=== PATIENT | male | born 1935 | race Caucasian/White ===

== ENCOUNTER 2017-04-10 14:09 | Observation (INO) | payer MEDICARE ==
[2017-04-10] VITALS (9 sets, daily range): BP systolic 150–196; BP diastolic 60–82; PULSE 75–114; RESP 16–28; O2SAT 97–99
[~2017-04-10] VITALS: Ht 182.9 cm; Wt 78.0 kg
[~2017-04-10 14:09] MED LIST: ALBU8.5H2 INHALATION; AZIT250T4 PO; CHLORPHENIRAMINE; CLOP75TA28 PO; CLOP75TA3 PO; CYAN500 PO; IPRA3AMP IH; OMEP20CA11 PO; PANT40SU PO; PENT400T PO; PRD5T PO; WARF1TAB6 PO; WARF2TAB7 PO
--- NOTE | 2017-04-10 14:47 | ED.REPORT ---
HPI-General Illness Date of Service Apr 10, 2017 ED Provider: History of Present Illness: sob with movement ongoing for a week. last tranfusion was 5 weeks ago. 7.8 was 2 weeks ago. Primary care is [facility]. 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 On coumadin for stents in legs. Nursing Notes Stated Complaint: ANEMIA Chief Complaint: General Complaint Nursing Notes Reviewed: Yes Allergies: Coded Allergies: Wasp (Verified Allergy, Severe, Anaphylaxis, 04/10/17) Uncoded Allergies: BEES - ANAPHYLAXIS (Allergy, Severe, anaphylaxis, 10/29/13) Scheduled Albuterol HFA (Proair HFA) 8.5 Gm Hfa.aer.ad 2 PUFFS INHALATION Q4H Clopidogrel Bisulfate (Plavix) 75 Mg Tablet 75 MG PO DAILY Cyanocobalamin (Vitamin B12) 500 Mcg Tablet 500 MCG PO DAILY Pantoprazole Sodium (Protonix Granules) 40 Mg Granpkt.dr 40 MG PO DAILY Pentoxifylline (Pentoxifylline) 400 Mg Tablet.er 400 MG PO TID Prednisone (PredniSONE) 5 Mg Tab 5 MG PO DAILY Warfarin Sodium (Warfarin Sodium) 2 Mg Tablet 2 MG PO DAILY Warfarin Sodium (Warfarin Sodium) 1 Mg Tablet 3 MG PO add to 2mg daily tab for total of 3mg Scheduled PRN Ipratropium/Albuterol Sulfate (Iprat-Albut 0.5-3(2.5) mg/3 mL Inhalant Soln) 3 Ml Ampul.neb 3 ML IH Q6 PRN PRN For Wheezing General Time Seen by MD: 14:45 Chief Complaint Weakness Hx Obtained From: Patient Sudden in Onset?: No Past Medical History Past Medical History Tuberculosis positive Reports: Asthma, COPD, Cancer, GERD, Stroke Reports: Diverticulitis, GI bleed Past Surgical History prostate cancer 10 years ago 04/10/2017. mole from back Reports: Prostatectomy, Tonsillectomy Smoking History Former Smoker (quit 3 years ago 2013, 60 year hx of smoking) Social History 2 cans of beer daily Alcohol Use: 1-3 per day Other Social History: Good social support, Occupation lives with , in 1 story house, retired 04/10/2017 Ambulatory Status Independent Review of Systems Full Review of Systems Constitutional: Reports: Fatigue Ears / Nose / Throat: Denies: Ear drainage left, Ear drainage right Respiratory: Reports: Dyspnea on exertion Cardiovascular: Reports: Dyspnea on exertion, Denies: Chest pain Musculoskeletal: Reports: Extremity pain (in legs) Physical Exam Vital Signs Vital Signs Date Time Temp Pulse Resp B/P Pulse Ox O2 Delivery O2 Flow Rate FiO2 04/10/17 18:12 36.5 92 20 04/10/17 17:59 36.8 81 18 04/10/17 16:13 36.6 83 18 04/10/17 14:10 36.6 114 28 150/60 97 Room Air Initial VS: Reviewed, Vital signs normal General/Constitutional: Well-developed, Well-nourished Head / Eyes: Atraumatic, Normocephalic, PERRL ENT: Mucous membranes moist, Conjunctiva normal, No scleral icterus Neck: Supple, Non-tender, Full range of motion Respiratory: Breath sounds normal, Clear to auscultation, No respiratory distress Cardiovascular: Regular rate & rhythm, Heart sounds normal, Intact distal pulses Abdomen / GI: Soft, Non-tender, No guarding, No rebound, No distention Back: No CVA tenderness Lymphatic: No lymphadenopathy Extremities: Vascular intact, Neuro intact, No swelling, No tenderness Skin: Warm, Dry, No cyanosis Neurologic: Alert, Oriented, Nonfocal Psychiatric: Mood/affect normal, Behavior normal, Normal thought content General/Constitutional: Awake, Alert, No acute distress, Well appearing, Well developed, Well hydrated Head / Eyes: Atraumatic, Normocephalic, PERRL ENT: Atraumatic, Airway patent, Mucous membranes moist, Pharynx NL Respiratory / Chest: Atraumatic, Breath sounds NL, Breath sounds = bilat Cardiovascular: Heart rate NL, Regular rhythm, Heart sounds NL Rectum / Perineum: Blood - occult heme - (negative) Interpretation & Diagnostics Interpretation & Diagnostics: PROCEDURE: US VENOUS LEG DUPLEX BILATERAL INDICATIONS: increasing pain when walking TECHNIQUE: Real-time imaging, as well as color and pulse Doppler interrogation, were performed of the deep veins of both legs from the inguinal ligament to the popliteal fossa. COMPARISON: None. FINDINGS: There is occlusive segmental thrombus in the left mid to distal superficial femoral vein. The left popliteal, proximal superficial femoral, and common femoral veins appear patent. The deep veins of the right leg are normally compressible, and free of intraluminal thrombus. Color and pulse Doppler demonstrate normal phasic intravascular flow. There is normal augmentation response to distal compression maneuver. IMPRESSION: 1. Occlusive segmental thrombus in the left mid to distal superficial femoral vein. Findings reported to Christy Cruz by the cardiovascular radiologic technologist at the conclusion of the study. Dictated by: Dean Lopez M.D. on 04/10/2017 at 18:25 Approved by: Dean Lopez M.D. on 04/10/2017 at 18:27 Lab Results Interpretation Result Diagram: 04/10/17 1445 04/10/17 1445 Test 04/10/17 14:45 04/10/17 18:12 White Blood Count 7.7th/mm3 (3.8-10.1) Red Blood Count 3.23mil/mm3 (4.40-5.80) Hemoglobin 6.5g/dL (13.8-17.2) Hematocrit 23.6% (41.0-50.0) Mean Corpuscular Volume 73.1fL (81-100) Mean Corpuscular Hemoglobin 20.1pg (27.0-35.0) Mean Corpuscular Hemoglobin Concent 27.5% (32.0-37.0) Red Cell Distribution Width 20.6% (12.3-15.4) Platelet Count 285bil/L (150-400) Neutrophils (%) (Auto) 81.9% (40-74) Lymphocytes (%) (Auto) 6.8% (14-46) Monocytes (%) (Auto) 8.2% (4-12) Eosinophils (%) (Auto) 1.0% (0-5) Basophils (%) (Auto) 0.9% (0-3) Prothrombin Time 21.3sec (8.1-12.5) Prothromb Time International Ratio 1.96ratio Sodium Level 138mEq/L (134-144) Potassium Level 4.2mEq/L (3.5-5.2) Chloride Level 99mEq/L (97-108) Carbon Dioxide Level 20mmol/L (18-29) Blood Urea Nitrogen 30mg/dL (8-27) Creatinine 1.49mg/dL (0.76-1.27) Estimat Glomerular Filtration Rate 48mL/min (>59) Glucose Level 121mg/dL (60-99) Calcium Level 9.2mg/dL (8.5-10.1) Magnesium Level 1.9mg/dL (1.6-2.6) Total Bilirubin 0.2mg/dL (0.0-1.2) Aspartate Amino Transf (AST/SGOT) 12U/L (0-50) Alanine Aminotransferase (ALT/SGPT) 9U/L (0-44) Alkaline Phosphatase 93U/L (25-160) Troponin T 0.022ug/L (0.0-0.011) Pro-B-Type Natriuretic Peptide 645.5pg/mL (0-486) Total Protein 6.8g/dL (6.4-8.4) Albumin 4.1g/dL (3.4-5.0) Hold Urine Received (Received) Lab Results Interpretation: PROCEDURE: US DUPLEX DOPPLER BILATERAL LEG ARTERIES ([id number]) INDICATIONS: increasing pain when walking TECHNIQUE: Color and pulse Doppler interrogation was performed of both lower extremity arterial systems, with image documentation. COMPARISON: [facility], US, ARTERY LEG DUPLEX,[facility], 08/24/2008, 7:33. FINDINGS: Right lower extremity: Vascular Ultrasound Procedure Report Findings(Artery of Lower Extremity)(Right) Common Femoral Artery(Distal) Velocity: 42.20 cm/s, biphasic flow Profunda Femoris Artery(Proximal) Velocity: 20 cm/s with monophasic flow Superficial Femoral Artery(Proximal) Velocity: 59.50 cm/s, triphasic flow Superficial Femoral Artery(Mid-longitudinal) Velocity: 92 cm/s, biphasic flow Superficial Femoral Artery(Distal) Velocity: 52.10 cm/s, biphasic flow Popliteal Artery(Mid-longitudinal) Velocity: There is focal occlusive thrombus in the proximal popliteal artery. There is reconstituted flow in the distal popliteal artery with monophasic waveforms and velocities of approximately 10 cm/s. Posterior Tibial Artery(Distal) Velocity: 13.30 cm/s, monophasic flow Dorsalis Pedis Artery(Distal) Velocity: 18.40 cm/s, monophasic flow Greyscale findings: There is extensive atherosclerotic plaque throughout the right lower extremity. Left lower extremity: Vascular Ultrasound Procedure Report Findings(Artery of Lower Extremity)(Left) Common Femoral Artery(Distal) Velocity: 76.80 cm/s Profunda Femoris Artery(Proximal) Velocity: 152 cm/s, triphasic flow Superficial Femoral Artery(Proximal) Velocity: 50.30 cm/s, monophasic flow Superficial Femoral Artery(Mid-longitudinal) Velocity: No flow visualized. Superficial Femoral Artery(Distal) Velocity: No flow visualized. Popliteal Artery(Mid-longitudinal) Velocity: 22 cm/s with monophasic flow. Posterior Tibial Artery(Distal) and Velocity: 17.10 cm/s, biphasic flow Dorsalis Pedis Artery(Distal) Velocity: 6.60 cm/s, monophasic flow Greyscale findings: There is extensive atherosclerotic plaque throughout the left lower extremity. IMPRESSION: 1. Segmental occlusive thrombus demonstrated in the mid to distal left superficial femoral artery with post occlusive flow reconstituted in the distal popliteal, posterior tibial, and anterior tibial arteries. 2. Short segment occlusive thrombus in the proximal right popliteal artery. Reconstituted post occlusive flow demonstrated in the distal popliteal artery with monophasic flow demonstrated in the posterior tibial and anterior tibial arteries. Dictated by: Dean Lopez M.D. on 04/10/2017 at 18:27 Approved by: Dean Lopez M.D. on 04/10/2017 at 18:34 ECG Interpretation ECG Interpretation: NSR w/PAC's @82, no acute ischemic changes, possible Q waves anteriorly, no change c/p 03/13/16 X-Ray Chest Interpretation Chest Xray Interpretation: PROCEDURE: X-RAY CHEST, TWO VIEWS ([id number]) INDICATIONS: sob TECHNIQUE: 2 views of the chest were acquired. COMPARISON: Merged With [facility], CT, CT NECK CHEST W CON, 03/03/2017, 11:14. Merged With [facility], CR, XR CHEST 2VW, 05/10/2016, 8:59. Merged With [facility], CR, XR CHEST 2VW, 08/12/2016, 9:52. FINDINGS: Surgical changes and devices: None. Lungs and pleura: No pleural effusions or pneumothorax. Irregular mass in the right upper lobe appears increased in density and size since 05/10/16.. 1.9 cm nodule in the left upper lobe is increased since 05/10/16. Poorly defined bilateral hilar opacities are again noted . Elsewhere, no new consolidation Mediastinum: Mediastinal contours are normal. Heart size is normal. Bones and chest wall: No suspicious bony abnormalities. Soft tissues appear unremarkable. IMPRESSION: Interval progression in right upper lobe masslike opacity. Please see report from recent chest CT dated 03/03/17 for more detailed comparison. Interval increase in left upper lobe pulmonary nodule No acute pneumonia identified. Dictated by: Brooks Nascimento M.D. on 04/10/2017 at 15:52 Approved by: Brooks Nascimento M.D. on 04/10/2017 at 15:55 Re-Eval/Medical Decision Med Decision/Clinical Course 81 year old male presents for evualation of weakness and shortness of breath with activity. Worse for the last 3 days. Patient with hx of stage 4 lung cancer, stents in lower legs and significant anemia of unknown orgin. Patient is transfused blood in the ER pending admission. Us does show clot formation in the left left with arterial occulsion in the right. No sign of any pneumonia or hematoma. Source of Hx: Old records Discharge & Departure Primary Impression: Symptomatic anemia Additional Impressions: DVT (deep venous thrombosis) DVT location: lower extremity Affected thrombotic vein of extremity: femoral Laterality: left Chronicity: acute Qualified Code: I82.412 - Acute embolism and thrombosis of left femoral vein Blocked artery Disposition: ADMITTED TO HOSPITAL Referrals: Sonam Overton PA-C (PCP) EDSupervising Provider for APC: Jeff Simon MD copies to: Sonam Overton PA-C, Sue ARNP Apr 10, 2017 14:47 Jeff Simon MD Apr 10, 2017 15:19
[2017-04-10] MEDS ORDERED: 0.9% Sodium Chloride 1,000 ML IV ONE (15:05)
[2017-04-10 15:17] LABS: BASOPHILS % (AUTO) 0.9 % (0-3); MONOCYTES % (AUTO) 8.2 % (4-12); Mean Corpuscular Hemoglobin 20.1 pg (27.0-35.0); Mean Corpuscular Volume 73.1 fL (81-100); NEUTROPHILS % (AUTO) 81.9 % (40-74); Platelet Count 285 bil/L (150-400)
[2017-04-10 15:28] LABS: INR 1.96 ratio
[2017-04-10 15:35] LABS: Magnesium 1.9 mg/dL (1.6-2.6)
--- NOTE | 2017-04-10 15:58 | DRSVH ---
PROCEDURE: X-RAY CHEST, TWO VIEWS ([id number]) INDICATIONS: sob TECHNIQUE: 2 views of the chest were acquired. COMPARISON: [facility], CT, CT NECK CHEST W CON, 03/03/2017, 11:14. [facility], CR, XR CHEST 2VW, 05/10/2016, 8:59. [facility], CR, XR CHEST 2VW, 08/12/2016, 9:52. FINDINGS: Surgical changes and devices: None. Lungs and pleura: No pleural effusions or pneumothorax. Irregular mass in the right upper lobe appea rs increased in density and size since 05/10/16.. 1.9 cm nodule in the left upper lobe is increased si nce 05/10/16. Poorly defined bilateral hilar opacities are again noted . Elsewhere, no new consolidati on Mediastinum: Mediastinal contours are normal. Heart size is normal. Bones and chest wall: No suspicious bony abnormalities. Soft tissues appear unremarkable. IMPRESSION: Interval progression in right upper lobe masslike opacity. Please see report from recent chest CT chanell ed 03/03/17 for more detailed comparison. Interval increase in left upper lobe pulmonary nodule No acute pneumonia identified. Dictated by: Brooks Nascimento M.D. on 04/10/2017 at 15:52 Approved by: Brooks Nascimento M.D. on 04/10/2017 at 15:55
[2017-04-10] MEDS ORDERED: 0.9% Sodium Chloride 250 ML ONE ×2 (16:01→17:51)
[2017-04-10] MEDS ORDERED: Alum-Mag Hydrox-Simeth 30 mL Suspension PO PRN (18:00)
[2017-04-10] MEDS ORDERED: Ondansetron 2 mg/mL 2 mL Inj IVPUSH PRN (18:00)
[2017-04-10] MEDS ORDERED: Polyethylene Glycol (PEG) 17 Gm Powder PO PRN (18:00)
--- NOTE | 2017-04-10 18:29 | DRSVH ---
PROCEDURE: US VENOUS LEG DUPLEX BILATERAL INDICATIONS: increasing pain when walking TECHNIQUE: Real-time imaging, as well as color and pulse Doppler interrogation, were performed of the deep veins of both legs from the inguinal ligament to the popliteal fossa. COMPARISON: None. FINDINGS: There is occlusive segmental thrombus in the left mid to distal superficial femoral vein. The left p opliteal, proximal superficial femoral, and common femoral veins appear patent. The deep veins of the right leg are normally compressible, and free of intraluminal thrombus. Color and pulse Doppler demonstrate normal phasic intravascular flow. There is normal augmentation respons e to distal compression maneuver. IMPRESSION: 1. Occlusive segmental thrombus in the left mid to distal superficial femoral vein. Findings reported to Christy Cruz by the molecular technologist at the conclusion of the study. Dictated by: Dean Lopez M.D. on 04/10/2017 at 18:25 Approved by: Dean Lopez M.D. on 04/10/2017 at 18:27
--- NOTE | 2017-04-10 18:36 | DRSVH ---
PROCEDURE: US DUPLEX DOPPLER BILATERAL LEG ARTERIES ([id number]) INDICATIONS: increasing pain when walking TECHNIQUE: Color and pulse Doppler interrogation was performed of both lower extremity arterial systems, with im age documentation. COMPARISON: [facility], US, ARTERY LEG DUPLEX,[facility], 08/24/2008, 7:33. FINDINGS: Right lower extremity: Vascular Ultrasound Procedure Report Findings(Artery of Lower Extremity)(Right) Common Femoral Artery(Distal) Velocity: 42.20 cm/s, biphasic flow Profunda Femoris Artery(Proximal) Velocity: 20 cm/s with monophasic flow Superficial Femoral Artery(Proximal) Velocity: 59.50 cm/s, triphasic flow Superficial Femoral Artery(Mid-longitudinal) Velocity: 92 cm/s, biphasic flow Superficial Femoral Artery(Distal) Velocity: 52.10 cm/s, biphasic flow Popliteal Artery(Mid-longitudinal) Velocity: There is focal occlusive thrombus in the proximal popliteal artery. There is reconstituted flow in the distal popliteal artery with monophasic waveforms and velocities of appr oximately 10 cm/s. Posterior Tibial Artery(Distal) Velocity: 13.30 cm/s, monophasic flow Dorsalis Pedis Artery(Distal) Velocity: 18.40 cm/s, monophasic flow Greyscale findings: There is extensive atherosclerotic plaque throughout the right lower extremity. Left lower extremity: Vascular Ultrasound Procedure Report Findings(Artery of Lower Extremity)(Left) Common Femoral Artery(Distal) Velocity: 76.80 cm/s Profunda Femoris Artery(Proximal) Velocity: 152 cm/s, triphasic flow Superficial Femoral Artery(Proximal) Velocity: 50.30 cm/s, monophasic flow Superficial Femoral Artery(Mid-longitudinal) Velocity: No flow visualized. Superficial Femoral Artery(Distal) Velocity: No flow visualized. Popliteal Artery(Mid-longitudinal) Velocity: 22 cm/s with monophasic flow. Posterior Tibial Artery(Distal) and Velocity: 17.10 cm/s, biphasic flow Dorsalis Pedis Artery(Distal) Velocity: 6.60 cm/s, monophasic flow Greyscale findings: There is extensive atherosclerotic plaque throughout the left lower extremity. IMPRESSION: 1. Segmental occlusive thrombus demonstrated in the mid to distal left superficial femoral artery wi th post occlusive flow reconstituted in the distal popliteal, posterior tibial, and anterior tibial a rteries. 2. Short segment occlusive thrombus in the proximal right popliteal artery. Reconstituted post occl usive flow demonstrated in the distal popliteal artery with monophasic flow demonstrated in the poste rior tibial and anterior tibial arteries. Dictated by: Dean Lopez M.D. on 04/10/2017 at 18:27 Approved by: Dean Lopez M.D. on 04/10/2017 at 18:34
[2017-04-10] MEDS ORDERED: [UNRECOGNIZED DRUG - OTHER] ORAL (19:48)
[2017-04-10] MEDS ORDERED: PHEN-877 PO (19:49)
[2017-04-10] MEDS ORDERED: RANI-426 PO (19:51)
--- NOTE | 2017-04-10 20:43 | PCM.HPMED ---
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 She has noted that he was unable to walk a few steps in his house until he became short of breath. He denies any chest pain but has noted that his heart was racing. He has also noted significant pain in his right lower extremity when walking. He also states that he felt like he was going to pass out, however denies any syncopal episodes. He also states that his thinking become quite cloudy as well the last couple of days. He denies any hematemesis or hematochezia. Patient has previously experienced hematochezia 4 years ago and underwent endoscopy. Patient underwent EGD in February 2016 which was notable for AVM in the gastric body which was treated with APC. Patient has continued to have intermittently low hemoglobin and required multiple blood transfusions. Patient has been evaluated Dr. Calderón for anemia in conjunction with his lung cancer and Dr. Calderón believes that his anemia is most likely due to recurrent gastrointestinal bleeding from AVMs. In the emergency department his vital signs were notable for heart rate of 114, respiratory rate 28. He was saturating well on room air. His laboratory evaluation was notable for Hgb of 6.5. Patient was typed and crossmatched for 3 units PRBCs and was already receiving second unit the time of interview. The patient was admitted to the hospitalist service for further evaluation and treatment. Review of Systems: A comprehensive review of systems was performed and is negative except as noted above in history present illness. Allergies Coded Allergies: Wasp (Verified Allergy, Severe, Anaphylaxis, 04/10/17) Uncoded Allergies: BEES - ANAPHYLAXIS (Allergy, Severe, anaphylaxis, 10/29/13) Home Medications Celso QuirozTony [id number] 1935 01/13/2017 08:15 AM 10/02 Start Date Medication Directions Stop Date 05/22/2016 albuterol sulfate HFA 90 mcg/actuation aerosol inhaler inhale 2 puff by inhalation route every 4 - 6 hours as needed 07/21/2016 ipratropium-albuterol 0.5 mg-3 mg(2.5 mg base)/3 mL nebulization soln inhale 3 milliliter by nebulization route 4 times every day 10/02/2016 lisinopril 2.5 mg tablet take 1 tablet by oral route every day 09/12/2016 pantoprazole 40 mg tablet,delayed release take 1 tablet by oral route every day pentoxifylline ER 400 mg tablet,extended release take 1 tablet by oral route 3 times every day with meals Plavix 75 mg tablet take 1 tablet by oral route every day Sudafed 30 mg tablet take 1 tablet by oral route every 6 hours as needed 11/26/2016 warfarin 2 mg tablet take 1 tablet by oral route every day except one and one half (3mg) on and Pembrulizumab PMH Pulmonary embolism Atrial fibrillation Peripheral vascular disease Hyperlipidemia Non-small cell lung cancer GERD (gastroesophageal reflux disease) HTN (hypertension) Ischemic Stroke COPD (chronic obstructive pulmonary disease) Spinal stenosis Prostate Cancer status post TURP Chronic renal insufficiency, stage III (moderate) Recurrent blood loss anemia Incomplete emptying of bladder Urethral syndrome Surgical History TURP or prostatectomy greater than 10 years ago A mole was excised from his back in 195 Patient's had a tonsillectomy Family History Mother at 94 of Alzheimer's. His father at age 62 lung cancer with metastatic disease to the brain Two sisters one from lung cancer and one he has not spoken to in a long time and does not even know if she is alive. Social History Hx Alcohol Use: Yes Alcoholic Drinks Per Day: 2 cans of beer, daily Hx Substance Use: No Hx Tobacco Use: Yes (10 CIGARETTES/DAY quit 2 years ago) Smoking Status: Former Smoker (The patient smoked 1 pack a day for 60 years) Years of Smokin Living Arrangement: with Family Additional Information The patient was born in [place] went to high school in [place]. 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 He met a woman from [place] who is in [place] teaching Gabonese and her to her for last 53 years. 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 After 30 years he had a falling out with his boss and retired. Patient smoked 1 pack per day for 60 years and used to drink red wine but it would not irritate his stomach and cause gastroesophageal reflux disease now he drinks beer and continues to drink 2 beers a day which does not bother his gastroesophageal reflux disease. Patient lives with his . He has 3 children. Exam Vital Signs Vital Sign - Last Date Time Temp Pulse Resp B/P Pulse Ox O2 Delivery O2 Flow Rate FiO2 04/10/17 19:25 36.7 75 16 182/82 99 Room Air Exam General: No acute distress, chronically ill-appearing, appropriately interactive , pale HEENT: Normocephalic, atraumatic. External ears without defect. Pupils equal, round, and reactive to light and accommodation. Anicteric sclerae, moist conjunctivae, and no lid lag. Oropharynx free of erythema and cobble stoning with moist mucosa. Pale conjunctiva. Neck: Supple with full range of motion. No jugular venous distension. No bruits. No lymphadenopathy or thyromegaly. Cardiovascular: Regular rhythm, tachycardic with no murmurs, rubs, or gallops appreciated Pulmonary: Diffuse inspiratory and expiratory wheeze. Normal respiratory effort with no use of accessory muscles. Abdomen: Bowel tones present. Soft, nontender, nondistended. No hepatosplenomegaly or masses appreciated. Extremities: No clubbing, cyanosis, edema, or lymphadenopathy appreciated. Skin: Normal temperature, turgor, and texture; no rash, ulcers, or subcutaneous nodules appreciated. Neurological: Cranial nerves grossly intact. Normal muscle strength, tone, and bulk. Reflexes, coordination, and sensory function within normal limits. No known gait impairment. Psychiatric: Normal mood and affect. Alert and oriented to person, place, and time. Sluggish in thinking. Lab and Diagnostics Result Diagram: 04/10/17 1445 04/10/17 1445 X-Rays, CTs and MRIs X-RAY CHEST, TWO VIEWS IMPRESSION: Interval progression in right upper lobe masslike opacity. Please see report from recent chest CT dated 03/03/17 for more detailed comparison. Interval increase in left upper lobe pulmonary nodule No acute pneumonia identified. Dictated by: Brooks Nascimento M.D. on 04/10/2017 at 15:52 US VENOUS LEG DUPLEX BILATERAL IMPRESSION: 1. Occlusive segmental thrombus in the left mid to distal superficial femoral vein. Findings reported to Christy Cruz by the nuclear medicine technologist at the conclusion of the study Dictated by: Dean Lopez M.D. on 04/10/2017 at 18:25 US DUPLEX DOPPLER BILATERAL LEG ARTERIES IMPRESSION: 1. Segmental occlusive thrombus demonstrated in the mid to distal left superficial femoral artery with post occlusive flow reconstituted in the distal popliteal, posterior tibial, and anterior tibial arteries. 2. Short segment occlusive thrombus in the proximal right popliteal artery. Reconstituted post occlusive flow demonstrated in the distal popliteal artery with monophasic flow demonstrated in the posterior tibial and anterior tibial arteries. Dictated by: Dean Lopez M.D. 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 # Acute on chronic blood loss anemia presumably secondary to recurrent AVM bleed , present on admission, active -Patient status post 3 units PRBC -Will trend H/H -Consider GI consultation for repeat endoscopy should his H/H continue to decline # Superficial vein thrombus in left leg, present on admission, active -Avoid SCDs # Multiple superficial arterial thrombi in left lower extremity, present on admission, active -Post occlusive flow demonstrated. Unlikely to required intervention. -Consider consulting Dr. Montez Stallworth who placed the stent or Dr. Johnson tomorrow -Avoid SCDs # Stage IV squamous cell carcinoma of the left upper lung with right upper lobe metastatic deposit, present on admission. Active - Patient is currently receiving immunotherapy under the direction of Dr. Subhash Calderón - As right lung mass and left upper lung nodule have increased in size may consult Dr. Calderón. Chronic issues, present on admission, stable: Pulmonary embolism, history of -Warfarin dose by pharmacy Atrial fibrillation -Warfarin dose by pharmacy Peripheral vascular disease -Continue Plavix, pentoxifylline and warfarin HTN (hypertension) -Continue lisinopril Chronic renal insufficiency, stage III (moderate) -Monitor BMP CODE STATUS: FULL CODE Patient is admitted under observation status with expected length of stay less than 2 midnights due to severity of presenting symptoms, risk of adverse event, and complexity of treatment plan. Pain Evaluation: Adequate Pain Control GI Prophylaxis: Proton Pump Inhibitor VTE Prophylaxis: Theraputic Anticoag with Warfarin Resuscitation Status: CPR: Attempt Resuscitation Danyell Mcpherson DO Apr 10, 2017 20:13 Riccardo Jacob MD Apr 10, 2017 21:51
--- NOTE | 2017-04-10 20:50 | PCM.CONPHA ---
Subjective Date of Service: Apr 10, 2017 Severe fatigue Reason for Pharmacy Consult: Anticoagulation Management Objective Vital Signs Date Time Temp Pulse Resp B/P Pulse Ox O2 Delivery O2 Flow Rate FiO2 04/10/17 19:25 36.7 75 16 182/82 99 Room Air 04/10/17 19:14 36.5 92 20 196/78 97 Room Air 04/10/17 18:12 36.5 92 20 04/10/17 17:59 36.8 81 18 04/10/17 16:13 36.6 83 18 04/10/17 14:10 36.6 114 28 150/60 97 Room Air Weight (Kilograms): 78.000 Height (Feet): 6 Height (Inches): 0.00 Test 04/10/17 14:45 04/10/17 18:12 White Blood Count 7.7th/mm3 (3.8-10.1) Red Blood Count 3.23mil/mm3 (4.40-5.80) Hemoglobin 6.5g/dL (13.8-17.2) Hematocrit 23.6% (41.0-50.0) Mean Corpuscular Volume 73.1fL (81-100) Mean Corpuscular Hemoglobin 20.1pg (27.0-35.0) Mean Corpuscular Hemoglobin Concent 27.5% (32.0-37.0) Red Cell Distribution Width 20.6% (12.3-15.4) Platelet Count 285bil/L (150-400) Neutrophils (%) (Auto) 81.9% (40-74) Lymphocytes (%) (Auto) 6.8% (14-46) Monocytes (%) (Auto) 8.2% (4-12) Eosinophils (%) (Auto) 1.0% (0-5) Basophils (%) (Auto) 0.9% (0-3) Prothrombin Time 21.3sec (8.1-12.5) Prothromb Time International Ratio 1.96ratio Sodium Level 138mEq/L (134-144) Potassium Level 4.2mEq/L (3.5-5.2) Chloride Level 99mEq/L (97-108) Carbon Dioxide Level 20mmol/L (18-29) Blood Urea Nitrogen 30mg/dL (8-27) Creatinine 1.49mg/dL (0.76-1.27) Estimat Glomerular Filtration Rate 48mL/min (>59) Glucose Level 121mg/dL (60-99) Calcium Level 9.2mg/dL (8.5-10.1) Magnesium Level 1.9mg/dL (1.6-2.6) Total Bilirubin 0.2mg/dL (0.0-1.2) Aspartate Amino Transf (AST/SGOT) 12U/L (0-50) Alanine Aminotransferase (ALT/SGPT) 9U/L (0-44) Alkaline Phosphatase 93U/L (25-160) Troponin T 0.022ug/L (0.0-0.011) Pro-B-Type Natriuretic Peptide 645.5pg/mL (0-486) Total Protein 6.8g/dL (6.4-8.4) Albumin 4.1g/dL (3.4-5.0) Hold Urine Received (Received) Assessment/Plan Assessment/Plan Warfarin management per pharmacy Indication: stents INR goal: 2-3 Admit dx: DVT, anemia Pertinent hx: stave IV lunch cancer Home warfarin dose: 3 mg on , 2 mg on all other days of the week. INR today: 1.96 Patient took warfarin 3 mg PO this morning around 11:00 (weekly bolus dose). Patient usually takes his warfarin in the morning. INR is subtherapeutic. Patient received his usual bolus dose this morning. Do not administer warfarin tonight as patient has already taken his dose at home. Serial INRs have been ordered x5. Pharmacy to continue to monitor and dose warfarin daily. Thank you, Shawn Daniel Pharmacist Shawn Daniel Apr 10, 2017 20:50
[2017-04-10] MEDS ORDERED: Albuterol 2.5 mg/3 mL Inhalation Solution NEB PRN (20:54)
--- NOTE | 2017-04-10 22:23 | NUR ---
Admit Note Pt. arrived on floor at 1910. Pt. alert and oriented x3. Pt's peripheral IV intact and patent. Pt. denies pain. 2nd bag of blood hanging and going. Pt. denies adverse reaction, and vss. Will continue to monitor.
[2017-04-10] MEDS: Albuterol-Ipratropium 3 mL Inhalation Solution NEB PRN (23:44)
[2017-04-11] VITALS (7 sets, daily range): BP systolic 150–182; BP diastolic 73–87; PULSE 77–90; RESP 16–20; O2SAT 94–98
[2017-04-11 06:52] LABS: Magnesium 1.9 mg/dL (1.6-2.6)
[2017-04-11 07:02] LABS: INR 1.87 ratio
[2017-04-11] MEDS ORDERED: Furosemide 10 mg/mL 2 mL Inj IVPUSH SCH (08:30)
[2017-04-11] MEDS ORDERED: Pantoprazole 40 mg ER24 Tablet PO SCH (08:30)
[2017-04-11] MEDS ORDERED: Pentoxifylline 400 mg ER12 Tablet PO SCH (08:30)
--- NOTE | 2017-04-11 08:59 | PROG NOTE ---
[address] [address] PROGRESS NOTE PATIENT: MONTSE MARIN : 1935 MR#: [id number] ADMIT: 04/10/2017 JOB ID: [id number] DATE: 04/11/2017 SUBJECTIVE: The patient is a 81-year-old gentleman with T1 N3 M1 squamous cell carcinoma of the left upper lung with a separate right upper lobe metastatic deposit. He is on treatment with immunotherapy. Most recent pembrolizumab was administered on March 27, 2017. He presented to the emergency department yesterday with increasing dyspnea. He denied any blood per rectum. He is on Coumadin for peripheral vascular disease, with known stents in his legs. His hemoglobin in the emergency department was 6.5, and he was hospitalized over night for transfusion support with 2 units of packed red blood cells. He is feeling a bit stronger today. He denies any active bleeding. No fevers. OBJECTIVE: Vitals: T 36.7, P 83, R 18, BP 182/87. HEENT: Conjunctivae slightly pale. Mucous membranes moist. No oral lesions. Chest: Scattered expiratory wheezes. Cardiac examination: Regular rate and rhythm with normal S1, S2. Abdomen: Soft, nontender. Extremities: No edema. 1+ distal pulses. No calf tenderness. LABORATORIES: Hemoglobin 8.2, hematocrit 27.8%. Sodium 143, potassium 4.6, BUN 25, creatinine 1.29, glucose 103. ASSESSMENT AND PLAN: 1. T1 N3 M1 (stage IV) squamous cell carcinoma of the left upper lung with right upper lobe metastatic deposit: Disease has been stable on immunotherapy, which is due again next week. [id number] next generation sequencing is pending, which will help to guide targeted therapy at the time of progression. 2. Anemia: The patient is on chronic anticoagulation for a history of peripheral vascular disease with lower extremity stents. Hemoglobin and hematocrit are improved after transfusion support, and he is less dyspneic. Doppler studies of his lower extremities showed occlusive thrombus in the left mid to distal superficial femoral vein. Recommend outpatient followup with his vascular surgeon.
[2017-04-11] MEDS: Albuterol-Ipratropium 3 mL Inhalation Solution NEB PRN (09:07)
--- NOTE | 2017-04-11 12:03 | PCM.PHAPRO ---
Progress Date of Service: Apr 11, 2017 Warfarin dosing [facility] jason Date -Apr 11-Mar INR 1.96 1.87 INR change -0.09 Warf Dose took 3 mg at home 3mg Nidia Dudley PharmD Apr 11, 2017 12:03
--- NOTE | 2017-04-11 14:57 | NUR ---
Social Work: Multi-Disciplinary Rounds Per MD in AM multi-disciplinary rounds, pt is being followed by Dr. Calderón in oncology. MD consulted Jacqueline Stallworth MD for leg pain. Pt potentially has small DVT blockages. Pt's lung masses have increased in size. Per MD, pt is eager to go home and follow-up with oncology. Pt likely to discharge today pending consults with MDs. NATALIIA Vilchis
--- NOTE | 2017-04-11 15:41 | NUR ---
NUTRITION ASSESSMENT: ASSESS: 81YO M admit with severe fatigue 2/2 anemia likely from recurrent GI bleeding from AVMs. Pt followed by oncology for STg IV lung CA, noted to be stable on immunotherapy. Pt reports he follows general diet, recent dysphagia, RN reports pt with no trouble with current diet. Pt ordering as tolerated. PMHX: COPD,Stg IV lung CA, CVA, Afib,HTN,Spinal Stenosis DIET: General. PO 50-10)% LABS: Alb 4.1, GLu 103 MEDS: Reviewed GI: NO BM WEIGHT: 78.0kg BMI:23.0 EST.NEEDS: CANCER/COPD (30-35kcal/kg;1.2-1.8g/kg pro) Kcal: [id number] Pro: 95-140g NUTRITION DIAGNOSIS: (1) Increased energy protein needs related to increased demand for nutrients as evidenced by Cancer/COPD. INTERVENTION: (1) Supplements added (Ensure) to meal trays to promote adequate kcal/protein intake. MONITOR/EVALUATE: PO intake, texture tolerance. F/U per moderate risk.
--- NOTE | 2017-04-11 16:13 | PCM.DIMED ---
Discharge Instructions Date of Service Apr 11, 2017 Dates of Hospitalization Apr 10, 2017 at 18:32 Discharge Diagnosis Discharge Diagnosis Anemia from GI blood loss likely from an AVM Diet Discharge Diet: Heart Healthy Activity Discharge Activity: No restrictions (The patient may increase his activity gradually as tolerated.) Call your provider Call your provider for: Fever or Chills, Shortness of breath, Bleeding, Chest pain, Vomitting, Excessive diarrhea, Weakness (unilateral) Patient Instructions Follow-up Provider: Umang Calle MD Follow-up with PCP in: 2 weeks Provider: Subhash Calderón MD Follow-up in: 1 week Mid-level Provider (F9): Montez Stallworth MD Follow-up with Mid-level in: 1 week Riccardo Jacob MD Apr 11, 2017 16:13
--- NOTE | 2017-04-11 16:22 | NUR ---
MANUEL explained to patient and his who is at bedside. MANUEL signed, copy of MANUEL given to pt.
--- NOTE | 2017-04-11 17:04 | NUR ---
DC.. Pt Iv's dc'd cannula x2 intact. Pt and given all dc instructions. No scripts given. Pt and to private vehicle at 1700.
--- NOTE | 2017-04-12 00:24 | PCM.PNMED ---
Subjective Date of Service Apr 12, 2017 Subjective The patient is very anxious to go home today. He is much less fatigued and has much less pain in his lower extremities. He is anxiously awaiting discharge. He has no new complaints. He has no fever, no chills, no diaphoresis. He has no shortness of breath. Exam Vital Signs Vital Sign - Last Date Time Temp Pulse Resp B/P Pulse Ox O2 Delivery O2 Flow Rate FiO2 04/11/17 13:48 36.8 90 16 151/73 97 Room Air Intake and Output 04/11/17 04/11/17 04/12/17 Cumulative From/Thru 15:00 23:00 07:00 04/10/17 14:10 - 04/11/17 07:47 Intake Total 2060 ml Output Total 1000 ml Balance 1060 ml Intake Oral 360 ml IV Total 1400 ml Packed Cells 300 ml Output Urine Total 1000 ml # Voids 1 Exam General: No acute distress, chronically ill-appearing, appropriately interactive , pale HEENT: Normocephalic, atraumatic. External ears without defect. Pupils equal, round, and reactive to light and accommodation. Anicteric sclerae, moist conjunctivae, and no lid lag. Oropharynx free of erythema and cobble stoning with moist mucosa. Pale conjunctiva. Neck: Supple with full range of motion. No jugular venous distension. No bruits. No lymphadenopathy or thyromegaly. Cardiovascular: Regular rhythm, tachycardic with no murmurs, rubs, or gallops appreciated Pulmonary: Diffuse inspiratory and expiratory wheeze. Normal respiratory effort with no use of accessory muscles. Abdomen: Bowel tones present. Soft, nontender, nondistended. No hepatosplenomegaly or masses appreciated. Extremities: No clubbing, cyanosis, edema, or lymphadenopathy appreciated. Skin: Normal temperature, turgor, and texture; no rash, ulcers, or subcutaneous nodules appreciated. Neurological: Cranial nerves grossly intact. Normal muscle strength, tone, and bulk. Reflexes, coordination, and sensory function within normal limits. No known gait impairment. Psychiatric: Normal mood and affect. Alert and oriented to person, place, and time. Sluggish in thinking. Lab and Diagnostics Result Diagram: 04/11/17 0545 04/11/17 0545 X-Rays, CTs and MRIs X-RAY CHEST, TWO VIEWS IMPRESSION: Interval progression in right upper lobe masslike opacity. Please see report from recent chest CT dated 03/03/17 for more detailed comparison. Interval increase in left upper lobe pulmonary nodule No acute pneumonia identified. Dictated by: Brooks Nascimento M.D. on 04/10/2017 at 15:52 US VENOUS LEG DUPLEX BILATERAL IMPRESSION: 1. Occlusive segmental thrombus in the left mid to distal superficial femoral vein. Findings reported to Christy Cruz by the textile technologist at the conclusion of the study Dictated by: Dean Lopez M.D. on 04/10/2017 at 18:25 US DUPLEX DOPPLER BILATERAL LEG ARTERIES IMPRESSION: 1. Segmental occlusive thrombus demonstrated in the mid to distal left superficial femoral artery with post occlusive flow reconstituted in the distal popliteal, posterior tibial, and anterior tibial arteries. 2. Short segment occlusive thrombus in the proximal right popliteal artery. Reconstituted post occlusive flow demonstrated in the distal popliteal artery with monophasic flow demonstrated in the posterior tibial and anterior tibial arteries. Dictated by: Dean Lopez M.D. 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 # Acute on chronic blood loss anemia presumably secondary to recurrent AVM bleed , present on admission, active -Patient status post 3 units PRBC -Will trend H/H -Consider GI consultation for repeat endoscopy should his H/H continue to decline # Superficial vein thrombus in left leg, present on admission, active -Avoid SCDs # Multiple superficial arterial thrombi in left lower extremity, present on admission, active -Post occlusive flow demonstrated. Unlikely to required intervention. -Consider consulting Dr. Montez Stallworth who placed the stent or Dr. Johnson tomorrow -Avoid SCDs # Stage IV squamous cell carcinoma of the left upper lung with right upper lobe metastatic deposit, present on admission. Active - Patient is currently receiving immunotherapy under the direction of Dr. Subhash Calderón - As right lung mass and left upper lung nodule have increased in size may consult Dr. Calderón. Chronic issues, present on admission, stable: Pulmonary embolism, history of -Warfarin dose by pharmacy Atrial fibrillation -Warfarin dose by pharmacy Peripheral vascular disease -Continue Plavix, pentoxifylline and warfarin HTN (hypertension) -Continue lisinopril Chronic renal insufficiency, stage III (moderate) -Monitor BMP CODE STATUS: FULL CODE Patient is admitted under observation status with expected length of stay less than 2 midnights due to severity of presenting symptoms, risk of adverse event, and complexity of treatment plan. Pain Evaluation: Adequate Pain Control GI Prophylaxis: Proton Pump Inhibitor VTE Prophylaxis: Theraputic Anticoag with Warfarin Resuscitation Status: CPR: Attempt Resuscitation SaucierRiccardo MD Apr 12, 2017 00:24
--- NOTE | 2017-04-16 14:20 | PCM.DC.MED ---
Discharge Summary Date of Service Apr 11, 2017 Dates of Hospitalization Date of Hospital Admission Apr 10, 2017 at 18:32 Date of Discharge: Apr 11, 2017 Providers: Admitting Physician: Riccardo Jacob MD Primary Care Physician: Sonam Overton PA-C Attending Physician: Riccardo Jacob MD Diagnosis at Time of Discharge Diagnosis at Time of Discharge Anemia from GI blood loss likely from an AVM Procedures XRay, CTs & MRIs X-RAY CHEST, TWO VIEWS IMPRESSION: Interval progression in right upper lobe masslike opacity. Please see report from recent chest CT dated 03/03/17 for more detailed comparison. Interval increase in left upper lobe pulmonary nodule No acute pneumonia identified. Dictated by: Brooks Nascimento M.D. on 04/10/2017 at 15:52 US VENOUS LEG DUPLEX BILATERAL IMPRESSION: 1. Occlusive segmental thrombus in the left mid to distal superficial femoral vein. Findings reported to Christy Cruz by the soil technologist at the conclusion of the study Dictated by: Dean Lopez M.D. on 04/10/2017 at 18:25 US DUPLEX DOPPLER BILATERAL LEG ARTERIES IMPRESSION: 1. Segmental occlusive thrombus demonstrated in the mid to distal left superficial femoral artery with post occlusive flow reconstituted in the distal popliteal, posterior tibial, and anterior tibial arteries. 2. Short segment occlusive thrombus in the proximal right popliteal artery. Reconstituted post occlusive flow demonstrated in the distal popliteal artery with monophasic flow demonstrated in the posterior tibial and anterior tibial arteries. Dictated by: Dean Lopez M.D. 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 emergency department today due to severe fatigue. She has noted that he was unable to walk a few steps in his house until he became short of breath. He denies any chest pain but has noted that his heart was racing. He has also noted significant pain in his right lower extremity when walking. He also states that he felt like he was going to pass out, however denies any syncopal episodes. He also states that his thinking become quite cloudy as well the last couple of days. He denies any hematemesis or hematochezia. Patient has previously experienced hematochezia 4 years ago and underwent endoscopy. Patient underwent EGD in February 2016 which was notable for AVM in the gastric body which was treated with APC. Patient has continued to have intermittently low hemoglobin and required multiple blood transfusions. Patient has been evaluated Dr. Calderón for anemia in conjunction with his lung cancer and Dr. Calderón believes that his anemia is most likely due to recurrent gastrointestinal bleeding from AVMs. In the emergency department his vital signs were notable for heart rate of 114, respiratory rate 28. He was saturating well on room air. His laboratory evaluation was notable for Hgb of 6.5. Patient was typed and crossmatched for 3 units PRBCs and was already receiving second unit the time of interview. The patient was admitted to the hospitalist service for further evaluation and treatment. 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 emergency department today due to severe fatigue. # Acute on chronic blood loss anemia presumably secondary to recurrent AVM bleed , present on admission, active -Patient status post 3 units PRBC -Will trend H/H -Consider GI consultation for repeat endoscopy should his H/H continue to decline # Superficial vein thrombus in left leg, present on admission, active -Avoid SCDs # Multiple superficial arterial thrombi in left lower extremity, present on admission, active -Post occlusive flow demonstrated. Unlikely to required intervention. -Consider consulting Dr. Montez Stallworth who placed the stent or Dr. Johnson tomorrow -Avoid SCDs # Stage IV squamous cell carcinoma of the left upper lung with right upper lobe metastatic deposit, present on admission. Active - Patient is currently receiving immunotherapy under the direction of Dr. Subhash Calderón - As right lung mass and left upper lung nodule have increased in size may consult Dr. Calderón. Chronic issues, present on admission, stable: Pulmonary embolism, history of -Warfarin dose by pharmacy Atrial fibrillation -Warfarin dose by pharmacy Peripheral vascular disease -Continue Plavix, pentoxifylline and warfarin HTN (hypertension) -Continue lisinopril Chronic renal insufficiency, stage III (moderate) -Monitor BMP CODE STATUS: FULL CODE Disposition: The patient will be discharged home with his today. Exam Vital Signs (Last) Date Time Temp Pulse Resp B/P Pulse Ox O2 Delivery O2 Flow Rate FiO2 04/11/17 13:48 36.8 90 16 151/73 97 Room Air Exam General: No acute distress, chronically ill-appearing, appropriately interactive , pale HEENT: Normocephalic, atraumatic. External ears without defect. Pupils equal, round, and reactive to light and accommodation. Anicteric sclerae, moist conjunctivae, and no lid lag. Oropharynx free of erythema and cobble stoning with moist mucosa. Pale conjunctiva. Neck: Supple with full range of motion. No jugular venous distension. No bruits. No lymphadenopathy or thyromegaly. Cardiovascular: Regular rhythm, tachycardic with no murmurs, rubs, or gallops appreciated Pulmonary: Diffuse inspiratory and expiratory wheeze. Normal respiratory effort with no use of accessory muscles. Abdomen: Bowel tones present. Soft, nontender, nondistended. No hepatosplenomegaly or masses appreciated. Extremities: No clubbing, cyanosis, edema, or lymphadenopathy appreciated. Skin: Normal temperature, turgor, and texture; no rash, ulcers, or subcutaneous nodules appreciated. Neurological: Cranial nerves grossly intact. Normal muscle strength, tone, and bulk. Reflexes, coordination, and sensory function within normal limits. No known gait impairment. Psychiatric: Normal mood and affect. Alert and oriented to person, place, and time. Sluggish in thinking. Test 04/10/17 14:45 04/10/17 18:12 04/11/17 05:45 White Blood Count 7.7th/mm3 (3.8-10.1) Red Blood Count 3.23mil/mm3 (4.40-5.80) Mean Corpuscular Volume 73.1fL (81-100) Mean Corpuscular Hemoglobin 20.1pg (27.0-35.0) Mean Corpuscular Hemoglobin Concent 27.5% (32.0-37.0) Red Cell Distribution Width 20.6% (12.3-15.4) Platelet Count 285bil/L (150-400) Neutrophils (%) (Auto) 81.9% (40-74) Lymphocytes (%) (Auto) 6.8% (14-46) Monocytes (%) (Auto) 8.2% (4-12) Eosinophils (%) (Auto) 1.0% (0-5) Basophils (%) (Auto) 0.9% (0-3) Total Bilirubin 0.2mg/dL (0.0-1.2) Aspartate Amino Transf (AST/SGOT) 12U/L (0-50) Alanine Aminotransferase (ALT/SGPT) 9U/L (0-44) Alkaline Phosphatase 93U/L (25-160) Troponin T 0.022ug/L (0.0-0.011) Pro-B-Type Natriuretic Peptide 645.5pg/mL (0-486) Total Protein 6.8g/dL (6.4-8.4) Albumin 4.1g/dL (3.4-5.0) Hold Urine Received (Received) Hemoglobin 8.2g/dL (13.8-17.2) Hematocrit 27.8% (41.0-50.0) Prothrombin Time 20.3sec (8.1-12.5) Prothromb Time International Ratio 1.87ratio Sodium Level 143mEq/L (134-144) Potassium Level 4.6mEq/L (3.5-5.2) Chloride Level 105mEq/L (97-108) Carbon Dioxide Level 25mmol/L (18-29) Blood Urea Nitrogen 25mg/dL (8-27) Creatinine 1.29mg/dL (0.76-1.27) Estimat Glomerular Filtration Rate 57mL/min (>59) Glucose Level 103mg/dL (60-99) Calcium Level 8.9mg/dL (8.5-10.1) Magnesium Level 1.9mg/dL (1.6-2.6) Discharge Medications Discharge Medications Albuterol HFA (Proair HFA) 8.5 Gm Hfa.aer.ad 2 PUFFS INHALATION Q4H (Reported) Clopidogrel Bisulfate (Plavix) 75 Mg Tablet 75 MG PO DAILY (Reported) Cyanocobalamin (Vitamin B12) 500 Mcg Tablet 500 MCG PO DAILY (Reported) Pantoprazole Sodium (Protonix Granules) 40 Mg Granpkt.dr 40 MG PO DAILY ( Reported) Pentoxifylline (Pentoxifylline) 400 Mg Tablet.er 400 MG PO TID Prescribed by: SKYLER AVILEZ DO Prednisone (PredniSONE) 5 Mg Tab 5 MG PO DAILY (Reported) Warfarin Sodium (Warfarin Sodium) 2 Mg Tablet 2 MG PO DAILY (Reported) Warfarin Sodium (Warfarin Sodium) 1 Mg Tablet 3 MG PO (Reported) add to 2mg daily tab for total of 3mg As needed ([chlorphenamine]) 4 MG ORAL DAILY PRN PRN For Congestion (Reported) Ipratropium/Albuterol Sulfate (Iprat-Albut 0.5-3(2.5) mg/3 mL Inhalant Soln) 3 Ml Ampul.neb 3 ML IH Q6 PRN PRN For Wheezing (Reported) Phenylephrine HCl (Sudafed PE) 10 Mg Tablet 30 MG PO PRN For Congestion ( Reported) Ranitidine (Ranitidine) 75 Mg Tablet 95 MG PO DAILY PRN PRN For Indigestion ( Reported) Followup Plan Disposition: The patient is being discharged home with his . Discharge Diet: Heart Healthy Discharge Activity: No restrictions (The patient may increase his activity gradually as tolerated.) Follow-up Provider: Umang Calle MD Follow-up with PCP in: 2 weeks Provider: Subhash Calderón MD Follow-up in: 1 week Mid-level Provider: Montez Stallworth MD Follow-up with Mid-level in: 1 week Time spent The time taken to discharge this patient was over 30 minutes, over half of which was involved in counseling and coordination of care. Riccardo Jacob MD Apr 16, 2017 14:20
== END 2017-04-11 17:00 | disposition home or self-care (01) ==
LOC: SED 14:09 → OSC 18:32
PROVIDERS: ADMIT Internal Medicine Infectious Disease; ATTEND Internal Medicine Infectious Disease
DX: D62 Acute posthemorrhagic anemia (principal); Q27.33 Arteriovenous malformation of digestive system vessel; I82.412 Acute embolism and thrombosis of left femoral vein; C34.12 Malignant neoplasm of upper lobe, left bronchus or lung; I12.9 Hypertensive chronic kidney disease with stage 1 through stage 4 chronic kidney disease, or unspecified chronic kidney disease; E78.5 Hyperlipidemia, unspecified; I48.91 Unspecified atrial fibrillation; I73.9 Peripheral vascular disease, unspecified; J45.909 Unspecified asthma, uncomplicated; J44.9 Chronic obstructive pulmonary disease, unspecified; K21.9 Gastro-esophageal reflux disease without esophagitis; N18.3 Chronic kidney disease, stage 3 (moderate); Z86.73 Personal history of transient ischemic attack (TIA), and cerebral infarction without residual deficits; Z95.820 Peripheral vascular angioplasty status with implants and grafts; Z85.828 Personal history of other malignant neoplasm of skin; Z85.46 Personal history of malignant neoplasm of prostate; Z91.038 Other insect allergy status; Z79.01 Long term (current) use of anticoagulants; Z87.891 Personal history of nicotine dependence; Z86.711 Personal history of pulmonary embolism
CPT/HCPCS: 36415; 36430; 71020; 80048; 80053; 83735; 83880; 84484; 85014; 85018; 85025; 85610; 86850; 86922; 93005; 93925; 93970; 94640; 94664; 96360; 96361; 96375; 99285; G0378; J1940; J7030; J7050; J7620; P9021

== ENCOUNTER 2017-05-26 10:37 | Inpatient (IN) | payer MEDICARE ==
[~2017-05-26] VITALS: Ht 182.9 cm; Wt 78.1 kg
[2017-05-26] VITALS (12 sets, daily range): BP systolic 149–182; BP diastolic 60–87; PULSE 83–117; RESP 16–24; O2SAT 93–98
[~2017-05-26 10:37] MED LIST changes: -AZIT250T4 PO; -CHLORPHENIRAMINE; -CLOP75TA28 PO; -OMEP20CA11 PO; +PEMB100V IV; +PHEN-877 PO; +RANI-426 PO; +[UNRECOGNIZED DRUG - OTHER] ORAL
[2017-05-26] MEDS ORDERED: Pantoprazole 4 mg/mL 10 mL Inj IVPUSH ONE (11:35)
[2017-05-26] MEDS ORDERED: Pantoprazole Inj 80 MG, Pharmacy To Mix 1 EA in 0.9% Sodium Chloride 80 ML IV ONE ×2 (11:35)
[2017-05-26 11:40] LABS: BASOPHILS % (AUTO) 1.7 % (0-3); EOSINOPHILS % (AUTO) 3.2 % (0-5); MONOCYTES % (AUTO) 5.4 % (4-12); Mean Corpuscular Hemoglobin 20.5 pg (27.0-35.0); Mean Corpuscular Volume 73.1 fL (81-100); NEUTROPHILS % (AUTO) 82.2 % (40-74); Platelet Count 264 bil/L (150-400)
[2017-05-26 11:55] LABS: INR 1.37 ratio
--- NOTE | 2017-05-26 12:04 | ED.REPORT ---
HPI-GI Bleed Date of Service May 26, 2017 ED Provider: Bartolo Zarate DO This is a 81-year-old male with history of stage IV lung cancer with current treatment, and peripheral vascular disease on warfarin, who presents to the emergency department sent from a clinic after blood drawn found to have hemoglobin of 6.9. Patient does have history of recurrent anemia last seen here March 2017 and transfuse 3 units of blood for what is thought to be a gastric AVM. Per previous discharge note recommendation was to consider EGD should further anemia occur. Currently he does note some shortness of breath, weakness, pain in both legs with ambulation. He reports he has dark brown to black stools with bowel movements occurring every 4 days. Patient is on warfarin with history of left femoral stent and right femoral angioplasty. Patient notes he has been coughing frequently with the green to brown sputum which he relates is similar to prior chronic bronchitis which is frequently treated with antibiotics. He denies any vomiting, diarrhea, abdominal pain, fevers or chills. Nursing Notes Stated Complaint: LOW hemoglobin Chief Complaint: General Complaint Nursing Notes Reviewed: Yes Allergies: Coded Allergies: Wasp (Verified Allergy, Severe, Anaphylaxis, 04/10/17) Uncoded Allergies: BEES - ANAPHYLAXIS (Allergy, Severe, anaphylaxis, 10/29/13) Scheduled Clopidogrel Bisulfate (Plavix) 75 Mg Tablet 75 MG PO DAILY Pantoprazole DR (Pantoprazole DR) 40 Mg Tablet.dr 40 MG PO DAILY Pentoxifylline (Pentoxifylline) 400 Mg Tablet.er 400 MG PO TID Prednisone (PredniSONE) 5 Mg Tab 5 MG PO DAILY Warfarin Sodium (Warfarin Sodium) 2 Mg Tablet 2 MG PO Sibley,Tu,We,Fr,Sa Warfarin Sodium (Warfarin Sodium) 2 Mg Tablet 3 MG PO fri, Scheduled PRN ([sudafed]) 30 MG PO q6 hours PRN PRN For Congestion Albuterol HFA (Proair HFA) 8.5 Gm Hfa.aer.ad 2 PUFFS INHALATION Q4H PRN PRN For Shortness of Breath Ipratropium/Albuterol Sulfate (Iprat-Albut 0.5-3(2.5) mg/3 mL Inhalant Soln) 3 Ml Ampul.neb 3 ML IH Q6 PRN PRN For Wheezing General Time Seen by Provider: 11:30 Chief Complaint Chief Complaint: Other (low hemoglobin) Risk-GI Bleed Bleeding Risk Stratification Bleeding Risk: Anticoagulants Malignancy Past Medical History Past Medical History Tuberculosis positive Peripheral vascular disease Gastric AVM Reports: Asthma, COPD, Cancer, GERD, Stroke Reports: Diverticulitis, GI bleed Past Surgical History prostate cancer 10 years ago 04/10/2017. mole from back Reports: Prostatectomy, Tonsillectomy Smoking History Former Smoker Social History 2 cans of beer daily Alcohol Use: 1-3 per day Other Social History: Good social support, Occupation lives with , in 1 story house, retired 04/10/2017 Ambulatory Status Independent Review of Systems Constitutional: Reports: Fatigue, Denies: Chills, Fever Respiratory: Reports: Dyspnea on exertion, Prod cough, brown, Prod cough, green GI: Reports: Melena (dark brown, black stool), Denies: Abdominal pain, Nausea, Vomiting Complete sys rev & neg: except as marked. Physical Exam Initial Vital Signs Vital Signs (First) Date Time Temp Pulse Resp B/P Pulse Ox O2 Delivery O2 Flow Rate FiO2 05/26/17 10:51 36.6 87 24 166/77 98 Room Air Initial VS: Reviewed Head / Eyes: Atraumatic, Normocephalic General/Constitutional: Awake, Alert, No acute distress, Not toxic appearing Diminished Breath Sounds: Positive: Decreased bilateral Wheezing / Retractions: Positive: Wheezing moderate Cardiovascular: Heart rate NL, Regular rhythm Periph CV / BP Differential: Positive: Peripheral pulses weak Abdomen: Soft, Non-tender, No distention Rectum / Perineum: No gross blood Rectal for Blood: Positive: Blood - occult heme + Brown stool without visible blood. Occult heme positive. Interpretation & Diagnostics Lab Results Interpretation Result Diagram: 05/26/17 1420 05/26/17 1120 Test 05/26/17 11:20 05/26/17 13:15 Prothrombin Time 14.8sec (8.1-12.5) Prothromb Time International Ratio 1.37ratio Sodium Level 141mEq/L (134-144) Potassium Level 4.4mEq/L (3.5-5.2) Chloride Level 103mEq/L (97-108) Carbon Dioxide Level 21mmol/L (18-29) Blood Urea Nitrogen 18mg/dL (8-27) Creatinine 1.39mg/dL (0.76-1.27) Estimat Glomerular Filtration Rate 52mL/min (>59) Glucose Level 113mg/dL (60-99) Calcium Level 8.9mg/dL (8.5-10.1) Total Bilirubin 0.3mg/dL (0.0-1.2) Aspartate Amino Transf (AST/SGOT) 15U/L (0-50) Alanine Aminotransferase (ALT/SGPT) 9U/L (0-44) Alkaline Phosphatase 105U/L (25-160) Total Protein 7.0g/dL (6.4-8.4) Albumin 4.0g/dL (3.4-5.0) Hold Mckeon Top Tube Received (Received) Hold Urine Received (Received) Re-Eval/Medical Decision Med Decision/Clinical Course Is is a 81-year-old male with lung cancer on immunotherapy by Dr. Calderón and peripheral vascular disease on warfarin who presents to the emergency department after having low hemoglobin, 6.9, on blood draw. This is a recurrent issue which he was last seen in March 2017 for the same and transfused 3 units of blood at that visit. They believe it is secondary to gastric AVM which was seen in February 2016 an endoscopy and treated with APC. Patient is symptomatic with increased shortness of breath and pain while walking. He also has notable wheezing. Patient here has hemoglobin of 7.0, Cr 1.39 and INR of 1.37. Plan is to transfuse 2 units of blood and give breathing treatment with albuterol. Plan is to admit patient for observation. Consultation : Referral / Consult Name: Alvaro Romano MD Consulted With: Hospitalist Call Returned at: 12:56 Advanced Nursing Professor: Will see patient, Agrees with eval, Agrees with plan, Accepts admit Discharge & Departure Impression: Primary Impression: Symptomatic anemia Disposition: ADMITTED TO HOSPITAL Discharge Condition All VS Reviewed: Yes Condition: Stable Referrals: Sonam Overton PA-C (PCP) Attending Statement The patient was seen and examined together with Dr. raines on 05/26/17 and I have added additional information to the note above. Eloy Raines DO May 26, 2017 12:04 Raf Trujillo May 26, 2017 13:05 Bartolo Zarate DO May 26, 2017 17:54 Total Protein 7.0g/dL (6.4-8.4) Albumin 4.0g/dL (3.4-5.0) Hold Mckeon Top Tube Received (Received) Re-Eval/Medical Decision Med Decision/Clinical Course Is is a 81-year-old male with lung cancer on immunotherapy by Dr. Calderón and peripheral vascular disease on warfarin who presents to the emergency department after having low hemoglobin, 6.9, on blood draw. This is a recurrent issue which he was last seen in March 2017 for the same and transfused 3 units of blood at that visit. They believe it is secondary to gastric AVM which was seen in February 2016 an endoscopy and treated with APC. Patient is symptomatic with increased shortness of breath and pain while walking. He also has notable wheezing. Patient here has hemoglobin of 7.0, Cr 1.39 and INR of 1.37. Plan is to transfuse 2 units of blood and give breathing treatment with albuterol. Plan is to admit patient for observation. Consultation : Referral / Consult Name: Alvaro Romano MD Consulted With: Hospitalist Call Returned at: 12:56 Advanced Nursing Professor: Will see patient, Agrees with eval, Agrees with plan, Accepts admit Discharge & Departure Impression: Primary Impression: Symptomatic anemia Disposition: ADMITTED TO HOSPITAL Discharge Condition All VS Reviewed: Yes Condition: Stable Referrals: Sonam Overton PA-C (PCP) Eloy Raines DO May 26, 2017 12:04 Raf Trujillo May 26, 2017 13:05
[2017-05-26] MEDS ORDERED: Albuterol 2.5 mg/3 mL Inhalation Solution NEB ONE (12:15)
[2017-05-26] MEDS ORDERED: PANT40TA3 PO (14:28)
[2017-05-26] MEDS ORDERED: sudafed PO (14:28)
[2017-05-26] MEDS ORDERED: WARF2TAB7 PO (14:28)
[2017-05-26 14:30] LABS: BASOPHILS % (AUTO) 1.9 % (0-3); EOSINOPHILS % (AUTO) 2.9 % (0-5); MONOCYTES % (AUTO) 7.4 % (4-12); Mean Corpuscular Hemoglobin 20.1 pg (27.0-35.0); Mean Corpuscular Volume 72.7 fL (81-100); NEUTROPHILS % (AUTO) 75.2 % (40-74); Platelet Count 255 bil/L (150-400)
--- NOTE | 2017-05-26 14:36 | PCM.HPMED ---
Subjective Date of Service May 26, 2017 Primary Provider: Admitting Physician: Primary Care Physician: Sonam Overton PA-C Attending Physician: Chief Complaint: [facility] from [facility] due to low H&H History of Present Illness: 81-year-old male with stage IV lung cancer on immunotherapy, history of gastric AV malformation, severe peripheral vascular disease on Plavix, hx of PE/afib on Coumadin, sent [facility] today. As H&H dropped from his baseline 8.0/28.5 05/08 to today 7.0/25.0. Patient stated that he was recently treated for pneumonia with antibiotics azithromycin, finished taking it a few days ago. She did have some cough and phlegm, difficulty breathing, however everything seems to be resolving. pt denied any difficulty breathing. Patient stated that he is taking pantoprazole daily and also taking ranitidine time to time. However patient chronically has dark stools which has not really changed recently. Patient denied having red blood in the stools, denied vomiting blood , stomach pain, nausea, vomiting. Patient complain of chronic fatigue, which was similar symptoms when he was hospitalized last time in , patient was found to have anemia, received 3 units of transfusion. No GI workup was pursued at that time. Patient was recommended to follow GI for possible repeat endoscopy. Last endoscopy was February 2016 with indication of anemia which showed Gastric AVM status post APC treatment Mild gastritis Mild distal esophagitis. Patient was continued on PPI daily. pt also underwent Capsule endoscopy, result is not available in the system. pt doesn't remember any particular findings. it was felt to be subacute to chronic bleeding from AVM. Anticoagulation tx was continued on d/c at that time. Patient is following up Dr. Calderón for lung CA. finished immunotherapy treatment recently, plan is to participate in clinical trial at [facility] [place], scheduled on next Friday. ROS: Patient denied fever, chills, cough, mild intermittent thick sputum, denied abdominal pain, nausea, vomiting, complain of fatigue, leg pain especially when he walks many blocks ED VS stable, [id number], [id number], afebrile,97 % on RA, received pPI 80mg iv, albuterol neb. Reportedly pt had brown color stool, FOBT+ Review of Systems: Pertinent positives as noted in history of present illness. All other systems were reviewed and are negative Allergies Coded Allergies: Wasp (Verified Allergy, Severe, Anaphylaxis, 04/10/17) Uncoded Allergies: BEES - ANAPHYLAXIS (Allergy, Severe, anaphylaxis, 10/29/13) Home Medications Scheduled Albuterol HFA (Proair HFA) 8.5 Gm Hfa.aer.ad 2 PUFFS INHALATION Q4H Clopidogrel Bisulfate (Plavix) 75 Mg Tablet 75 MG PO DAILY Cyanocobalamin (Vitamin B12) 500 Mcg Tablet 500 MCG PO DAILY Pantoprazole Sodium (Protonix Granules) 40 Mg Granpkt.dr 40 MG PO DAILY Pentoxifylline (Pentoxifylline) 400 Mg Tablet.er 400 MG PO TID Prednisone (PredniSONE) 5 Mg Tab 5 MG PO DAILY Warfarin Sodium (Warfarin Sodium) 2 Mg Tablet 2 MG PO DAILY Warfarin Sodium (Warfarin Sodium) 1 Mg Tablet 3 MG PO add to 2mg daily tab for total of 3mg Scheduled PRN ([chlorphenamine]) 4 MG ORAL DAILY PRN PRN For Congestion Ipratropium/Albuterol Sulfate (Iprat-Albut 0.5-3(2.5) mg/3 mL Inhalant Soln) 3 Ml Ampul.neb 3 ML IH Q6 PRN PRN For Wheezing Phenylephrine HCl (Sudafed PE) 10 Mg Tablet 30 MG PO PRN For Congestion Ranitidine (Ranitidine) 75 Mg Tablet 95 MG PO DAILY PRN PRN For Indigestion Miscellaneous Medications Pembrolizumab (Keytruda) 100 Mg/4 Ml (25 Mg/Ml) Vial 200 MG IV PMH PMH Pulmonary embolism Atrial fibrillation Peripheral vascular disease Hyperlipidemia Non-small cell lung cancer GERD (gastroesophageal reflux disease) HTN (hypertension) Ischemic Stroke COPD (chronic obstructive pulmonary disease) Spinal stenosis Prostate Cancer status post TURP Chronic renal insufficiency, stage III (moderate) Recurrent blood loss anemia Incomplete emptying of bladder Urethral syndrome Surgical History TURP or prostatectomy greater than 10 years ago A mole was excised from his back in 1952 Patient's had a tonsillectomy Family History Mother at 94 of Alzheimer's. His father at age 62 lung cancer with metastatic disease to the brain Two sisters one from lung cancer and one he has not spoken to in a long time and does not even know if she is alive. Social History Hx Alcohol Use: Yes ("1-2 bottle of beer a week") Hx Substance Use: No Hx Tobacco Use: Yes (10 CIGARETTES/DAY quit 2 years ago) Smoking Status: Former Smoker Exam Vital Signs Vital Sign - Last Date Time Temp Pulse Resp B/P Pulse Ox O2 Delivery O2 Flow Rate FiO2 05/26/17 13:02 93 18 97 Room Air 05/26/17 11:52 151/74 05/26/17 10:51 36.6 Exam NAD, comfortably laying down on the bed no JVD, MMM, no LAD RRR, nl s1, s2 no mrg Bibasilar crackles, no wheezing. 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 Acute, active # Acute on chronic blood loss anemia presumably secondary to recurrent AVM bleed , present on admission, active. FOBT+ on admission. h/h dropped 1 from baseline. it's possible that pt has very mild degree chronic bleeding from AVM. No s/s of active GIB, symptom are unremarkable.pt received PPI 80mg iv in ED. reportedly had colonscopy done 4yrs ago, which didn't show signs of bleeding or mass. -ordered 1unit pRBC -Will trend H/H -s/p 80mg iv, continue PPI 40mg increased to bid from home dose. -Consider GI consultation for repeat endoscopy/possible colonoscopy if h/h drops tomorrow. chronic, stable # Stage IV squamous cell carcinoma of the left upper lung with right upper lobe metastatic deposit, Patient is currently receiving immunotherapy under the direction of Dr. Subhash Calderón, recently finishsed, FU with [facility] next week #PE on Coumadin, INR1.3, hold off on Coumadin for now #Atrial fibrillation, hold off Coumadin for now, telemetry #Peripheral vascular disease, hold Plavix for today, pentoxifylline and warfarin #HTN (hypertension), Continue lisinopril #Chronic renal insufficiency, stage III (moderate), Monitor BMP Dispo: Patient is admitted under observation status with expectation that she will be discharged within 24-48 hours, diet:general dvt ppx:SCD Full code CODE STATUS: FULL CODE Time spent 65min Alvaro Romano MD May 26, 2017 13:04
--- NOTE | 2017-05-26 15:10 | NUR ---
Admit A&O pt arrived to unit at 1435 from ED. Pt denies pain. at bedside. IV PPI infusing. VSS. Pt oriented to room and facility. Denies having questions, pleasantly states "I've done this before." Bed in low position, upper rails up, call light in reach. Will continue to monitor.
[2017-05-26] MEDS: Pantoprazole 40 mg ER24 Tablet PO SCH (16:35)
[2017-05-26] MEDS ORDERED: Albuterol-Ipratropium 3 mL Inhalation Solution NEB ONE (17:10)
--- NOTE | 2017-05-26 17:35 | NUR ---
Transfusion #1 Delay in transfusion d/t consent not being signed. Dr vasquez. Transfusion of 1st unit started at 1733, verified with SUKHI Butler. Pt states this is the 6th transfusion. Denies having questions. Addendum: 05/26/17 at 1842 by JESSE ROGERS RN 15 min VSS. See separate charting. Pt tolerating transfusion well, will continue to monitor.
--- NOTE | 2017-05-26 18:13 | NUR ---
Case Management: MANUEL explained to patient at 1800, all questions answered. Signed original placed in chart, copy given to patient. Bela Connor RN
[2017-05-26] MEDS: Pentoxifylline 400 mg ER12 Tablet PO SCH (20:37)
[2017-05-26] MEDS: Albuterol-Ipratropium 3 mL Inhalation Solution NEB PRN (20:49)
[2017-05-27] VITALS (13 sets, daily range): BP systolic 159–186; BP diastolic 78–88; PULSE 79–97; RESP 16–26; O2SAT 94–98
[2017-05-27] MEDS: Albuterol-Ipratropium 3 mL Inhalation Solution NEB PRN ×4 (01:40→21:54)
[2017-05-27] MEDS: 0.9% Sodium Chloride 250 ML IV SCH ×2 (03:44→19:47)
--- NOTE | 2017-05-27 04:14 | NUR ---
Transfusion #2: After lab results, order for 2 additional units of blood. Second unit started at this time, with 3 additional units available in lab. Pt denies dizziness when up. Did have a moderate soft BM this wreath and garland maker hand; dark brown in color with maroon blood on the toilet paper when wiping. Guaiac sent to lab.
[2017-05-27] MEDS: predniSONE 5 mg Tablet PO SCH (07:43)
[2017-05-27] MEDS: Pantoprazole 40 mg ER24 Tablet PO SCH ×2 (07:44→16:55)
[2017-05-27 08:27] LABS: APPEARANCE,URINE HAZY (CLEAR,HAZY); COLOR,URINE STRAW (YELLOW); PH,URINE 6.5 (5.0-8.0)
[2017-05-27 08:28] LABS: OCCULT BLOOD,URINE NEGATIVE (NEGATIVE); UROBILINOGEN,URINE NORMAL (NORMAL)
[2017-05-27] MEDS: Pentoxifylline 400 mg ER12 Tablet PO SCH ×3 (08:30→19:48)
--- NOTE | 2017-05-27 09:13 | NUR ---
Social Work-initial assessment/readiness for discharge: Data:See initial assessment. Pt is a 81 y/o male who was admitted on 05/26/17 for symptomatic anemia per H&P. Pt's insurance is [employer] and PCP is KYMBERLY Johnson. EMR Reviewed. Pt's readmission score is 4-high risk. SW met with pt and Shena Jose at bedside, SW role explained. Pt is alert and oriented x3. Pt resides at home with his on [place] in a single level home where he remains independent with ADls. Pt uses a cane at baseline and does drive. Pt has no HH or SNF history. 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 SW discussed DPOA/ advanced directive, paperwork has been provided. No concerned noted from MD dinkey press operator regarding pt's capacity for self care. Pt has been up independent in his room. Pt's to provide transport home at discharge. SW provided pt with discharge planning checklist and encouraged pt to call with any questions,phone number provided on white board in room. No anticipated discharge needs. SW will continue to follow if needs arise. Assessment:Pt who is independent at baseline. Plan:Pt to discharge home when medically stable via POV. No anticipated discharge needs. SW will continue to follow if needs arise. NATALIIA Hodges Addendum: 05/27/17 at 0918 by KIRSTIN MANN SS Amended: Links added.
[2017-05-27] MEDS ORDERED: Furosemide 10 mg/mL 4 mL Inj IVPUSH ONE (10:40)
[2017-05-27 11:25] LABS: BASOPHILS % (AUTO) 2.4 % (0-3); MONOCYTES % (AUTO) 7.3 % (4-12); Mean Corpuscular Hemoglobin 23.2 pg (27.0-35.0); Mean Corpuscular Volume 74.5 fL (81-100); NEUTROPHILS % (AUTO) 76.6 % (40-74); Platelet Count 247 bil/L (150-400)
--- NOTE | 2017-05-27 11:44 | PCM.CHPMED ---
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 Patient states that he chronically has black tarry stool intermittently but has never had bright red blood in his stool. Although he denies constipation he reports bowel movements every four days and describes episodes of liquid stool followed by hard stool 1- 2 days later. He denies abdominal pain or cramping, nausea and vomiting. Associated symptoms include fatigue, generalized weakness and dark black stools with bright red blood for the past few days. Of note, he reports a recent diagnosis of pneumonia for which he completed a course of azithromycin a few days ago. Although he continues to report a productive dough, shortness of breath he feels this is resolving. He denies fever, chills, abdominal pain, nausea, vomiting, diarrhea and constipation. He was admitted in March with similar symptoms and anemia attributed to gastric AVM at that time. He was transfused 3 units of pRBCs and discharged in stable condition with plan to followup as an outpatient for possible repeat EGD. Of note, patient' s last endoscopy in February of 2016 showed Gastric AVM, mild gastritis and mild distal esophagitis. He is currently taking pantoprazole daily and states that he occasionally takes ranitidine as well. He reportedly underwent capsule endoscopy after recent hospital stay but he does not remember the findings and results are not available within our system. However, it was noted to be subacute on chronic bleeding from the AVM and anticoagulation was continued at discharge. He is following up Dr. Calderón for lung cancer and reportedly finished immunotherapy treatment recently with plan to participate in clinical trial at [place] [facility], next Friday. In the ED, he was afebrile and hypertensive with a BP of 166/77 and heart rate 87. Maintaining oxygen sats of 98% on room air. Labs significant for a Hb of 6.7 , Hct 24.2, plts 255 and +FOBT. Metabolic panel largely unremarkable. Review of Systems: A comprehensive review of systems was performed and is negative except as noted above in history present illness. PMH Past Medical History Stage IV squamous cell carcinoma of lung Pulmonary embolism Atrial fibrillation Peripheral vascular disease Hyperlipidemia Non-small cell lung cancer GERD (gastroesophageal reflux disease) HTN (hypertension) Ischemic Stroke COPD (chronic obstructive pulmonary disease) Spinal stenosis Prostate Cancer status post TURP Chronic renal insufficiency, stage III (moderate) Recurrent blood loss anemia Incomplete emptying of bladder Urethral syndrome Tuberculosis positive Peripheral vascular disease Gastric AVM Asthma Diverticulitis GI bleed . Surgical History Prostate cancer s/p prostatectomy Mole excision Tonsillectomy . Home Medications Clopidogrel 75 MG PO DAILY Pantoprazole 40 MG PO DAILY Pentoxifylline 400 MG PO TID Prednisone 5 MG PO DAILY Warfarin Sodium 2 MG PO Sibley,Tu,We,Fr,Sa Warfarin Sodium 3 MG PO mon,thur Sudafed 30 MG PO q6 hours PRN For Congestion Albuterol HFA 2 PUFFS INH Q4H PRN For Shortness of Breath Ipratropium/Albuterol Sulfate 3 ML IH Q6 PRN For Wheezing Allergies: Coded Allergies: Wasp (Verified Allergy, Severe, Anaphylaxis, 04/10/17) Uncoded Allergies: BEES - ANAPHYLAXIS (Allergy, Severe, anaphylaxis, 10/29/13) Family History Family History Mother at 94 of Alzheimer's. His father at age 62 lung cancer with metastatic disease to the brain Two sisters one from lung cancer . Social History Hx Alcohol Use: Yes ("1-2 bottle of beer a week")Hx Substance Use: NoHx Tobacco Use: Yes (10 CIGARETTES/DAY quit 2 years ago) Smoking Status: Former Smoker Additional Information Former Smoker 2 cans of beer daily Lives with , retired . Exam Vital Signs Vital Sign - Last Date Time Temp Pulse Resp B/P Pulse Ox O2 Delivery O2 Flow Rate FiO2 05/27/17 08:37 36.9 79 16 178/80 05/27/17 08:02 94 Room Air Intake and Output 05/26/17 05/26/17 05/27/17 Cumulative From/Thru 15:00 23:00 07:00 05/26/17 10:51 - 05/27/17 06:42 Intake Total 1615 ml 1064 ml 2679 ml Output Total 800 ml 350 ml 1200 ml 2350 ml Balance -800 ml 1265 ml -136 ml 329 ml Intake Oral 1118 ml 700 ml 1818 ml IV Total 497 ml 364 ml 861 ml Output Urine Total 800 ml 350 ml 1200 ml 2350 ml # Voids 2 1 3 General: Elderly male in no acute distress. Appropriately interactive HEENT: Normocephalic, atraumatic. PERRLA, Anicteric sclerae, moist mucosa. Pale conjunctiva. Cardiovascular: Regular rhythm with no murmurs, rubs, or gallops appreciated Pulmonary: Lung sounds coarse with diffuse inspiratory and expiratory wheeze and crackles on the left. Normal respiratory effort Abdomen: Bowel tones present. Soft, nontender, mildly distended with no rebound or guarding. No masses Extremities: Warm, well perfused with no edema. Skin: Scattered ecchymosis upper ext bilaterally, no obvious rashes or ulcerations. Neurological: AOx3, grossly neurologically intact. Normal speech. Psychiatric: Normal mood and affect. 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 He presented to the ED from the INR clinic with a hemoglobin of 6.7 and GI consulted for further evaluation of GI bleeding. Acute on chronic blood loss anemia presumably secondary to recurrent AVM bleed -Hb 6.7/Hct 24.2 with +FOBT and four day history of melena. Baseline Hb of ~8.0 in patient with hx of chronic bleeding from AVM; Colonoscopy w/o signs of bleeding or mass 4yrs ago and capsule endoscopy recently reportedly negative. -In addition toe AVM, DDx includes: peptic ulcer disease, colitis, diverticulosis, vascular lesions and neoplasms. 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 Subhash Calderón, recently finishsed, FU with [facility] next week - Hs of pulmonary embolism, on Coumadin, INR1.3, hold off on Coumadin for now - Atrial fibrillation, hold off Coumadin for now, telemetry - Peripheral vascular disease, hold Plavix for today, pentoxifylline and warfarin - HTN (hypertension), Continue lisinopril - Chronic renal insufficiency, stage III (moderate), Monitor BMP . Problems: VTE Mechanical Devices: Intermittant Pneumatic CD Attending Statement Patient seen and examined. Agree with assessment and plan as described by Dr Marinelli. Celso is a very challenging historian. He describes some dark stools, tar, and even some red blood on top of some of his stools. Stool was heme negative this morning. Not entirely sure as to just how acute his bleeding symptoms have been. Agree with EGD with Dr Caal today. I visited with Celso after the procedure. Offered him a bowel prep. He was a little hesitant. Patient will consider colonoscopy. Reviewed his capsule from February 2016. Incomplete exam. Some non bleeding AVMs in the proximal small bowel. At this point, may still be worthwhile to repeat the colonoscopy and even repeat the pill cam depending on cscope results. Bhumika Marinelli DO May 27, 2017 11:03 Minh Andrea MD May 27, 2017 18:26
--- NOTE | 2017-05-27 12:22 | NUR ---
BLOOD/GI Patient finished 3/3 units of RBC at 1030, patient tolerated blood infusion well, 40mg Lasix IVP given post infusion. The 1130 CBC results Hbg 10, Hct 34. Patient is to have GI consult today, awaiting transport to ED and has been NPO since 0800. Last stool negative for blood but patient reports active bleeding from rectum, and this also given per NOC nurse. BP 170.s. Patient has had another BM this am and guaiac and PCR sent.
--- NOTE | 2017-05-27 12:47 | PCM.HPANE ---
Patient Data Surgeon Admitting Provider:Alvaro Romano MD Attending Provider:Alvaro Romano MD Primary Care Physician:Sonam Overton PA-C Other Provider: Reason for Visit Symptomatic Anemia/Upper Gi Bleed Ht/WT & BMI Height (Feet): 6 Height (Inches): 0.00 Weight (Kilograms): 78.100 Body Mass Index 23.00 Allergies Coded Allergies: Wasp (Verified Allergy, Severe, Anaphylaxis, 04/10/17) Uncoded Allergies: BEES - ANAPHYLAXIS (Allergy, Severe, anaphylaxis, 10/29/13) Past Anesthesia History Anesthesia History: Positive for:: Fam Anesthesia Reaction (mom had difficulty coming out of anesthesia), Denies:: Abnormal Airway, Anesthesia Reactions, Difficult Intubation, Fam Malignant Hypertherm, Malignant Hyperthermia Diabetes History Hx Diabetes?: No MRSA MRSA: No Medications Active Scripts Pentoxifylline 400 Mg Tablet.er400 Mg PO TID 30 Days Prov:Jesse Fishman MD 06/13/14 Reported Medications Warfarin Sodium 2 Mg Tablet3 Mg PO fri, 30 Days Ref 0 05/26/17 [sudafed] No Conflict Check30 Mg PO q6 hours PRN For Congestion 05/26/[address] 40 Mg Tablet.dr40 Mg PO DAILY Ref 0 05/26/17 Prednisone (PredniSONE)5 Mg Tab5 Mg PO DAILY #30 TABLET Ref 3 03/27/17 Clopidogrel Bisulfate (Plavix)75 Mg Fmclzk46 Mg PO DAILY #30 TABLET Ref 3 03/27/17 Albuterol HFA (Proair HFA)8.5 Gm Hfa.aer.ad2 Puffs INHALATION Q4H PRN For Shortness of Breath #1 INHALER 03/12/16 Ipratropium/Albuterol Sulfate (Iprat-Albut 0.5-3(2.5) mg/3 mL Inhalant Soln)3 Ml Ampul.neb3 Ml IH Q6 PRN For Wheezing Ref 0 03/12/16 Warfarin Sodium 2 Mg Tablet2 Mg PO Sibley,Tu,We,Fr,Sa 30 Days Ref 0 06/13/14 Discontinued Reported Medications Pembrolizumab (Keytruda)100 Mg/4 Ml (25 Mg/Ml) Vkeb320 Mg IV 05/07/17 Ranitidine 75 Mg Hpocqp78 Mg PO DAILY PRN For Indigestion Ref 0 04/10/17 Phenylephrine HCl (Sudafed PE)10 Mg Erwuay25 Mg PO PRN For Congestion 04/10/17 [chlorphenamine] No Conflict Check4 Mg ORAL DAILY PRN For Congestion 04/10/17 Pantoprazole Sodium (Protonix Granules)40 Mg Granpkt.dr40 Mg PO DAILY #30 PACKET Ref 3 03/27/17 Cyanocobalamin (Vitamin B12)500 Mcg Umnqqe347 Mcg PO DAILY 12/12/16 Warfarin Sodium 1 Mg Tablet3 Mg PO 30 Days Ref 0 add to 2mg daily tab for total of 3mg 03/11/16 History History of ENT Problems?: Yes HEENT History: Positive for:: Hearing Problem (not wearing to endo) Sinus Problem (maxillary sinus (Lt) inflammation) Denies:: Abnormal Airway Cataracts Difficult Intubation Dysphagia Denture Type: Partial- Upper Partial- Lower Teeth Condition: Within Normal Limits Hx of Heart Problems?: Yes Cardiovascular History: Positive for:: Cardiac Surgery (angioplast jesusita zhong 2012) Edema Irregular Heartbeat (h/o atrial fibrillation) Denies:: AICD Atrial Fibrillation Chest Pain Congestive Heart Failure Heart Murmur (ECHO 09/2013) Hypertension Pacemaker Thrombophlebitis Valvular Heart Disease Hx of Respiratory Problem?: Yes Respiratory History: Positive for:: Asthma COPD Cough Dyspnea Hemoptysis (During radiation) Oxygen Administration (O2 SATS <94% IN HOSP, SENT HOME ON O2 10/23/2013) Pneumonia (HOSP. 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 Pressure Ulcers Hx Musculoskeletal Problems?: Yes Musculoskeletal History: Positive for:: Back Injury Musculoskeletal Trauma (REMOTE HX OF FOOT INJURY-USES CANE) Denies:: Fibromyalgia Joint Replacement Hx of Psycho/Social Problems?: No Psycho Social History: Denies:: Anxiety Bipolar Disorder Hx Depression Suicide Attempt Hx Surgeries?: Yes (prostatectomy, stents in right leg for PVD) Hx Any Other Health Problems?: Yes Other History: Positive for:: Cancer (prostate '02 and lung ' ) Hospitalization (10/19- PNEUMONIA,GI BLEED,SFA OCCLUSION LT LEG) Denies:: Endocrine Disease Thyroid Disease History Blood Transfusions: Positive for:: Accept Blood Products? Blood Transfusions Denies:: Blood Transfuse Reaction Hx Diabetes: No Hx Alcohol Use: Yes ("1-2 bottle of beer a week")Hx Substance Use: No Smoking Status: Former Smoker Have You Smoked inLast 12 mo: No Stop/Bang Treated for Sleep Apnea?: No Do You Have a CPAP Machine?: No S-Snoring: Do You Snore Loudly: Yes T-Tired: feel tired, fatigued: No O-Obsered: Observed not breath: No P-Blood Pressure: treated: No B- Body Mass Index > 35 kg/m2: No A- Age over 50: Yes N- Neck Large Circumference: No G- Gender Male: Yes YINKA Total Score: 3 YINKA Risk Assessment: Low Risk, <3 Yes Risk Assessment Category Category 1A: Patient has history of documented sleep apnea, and HAS NOT received any narcotic, sedative or anesthesia administration during this stay. Category 1B: Patient has history of documented sleep apnea, and HAS received any narcotic , sedative or anesthesia administration during this stay Category 2: Patient has SUSPECTED Obstructive Sleep Apnea, and HAS received any narcotic , sedative or anesthesia administration during this stay. Category 3: Patient has SUSPECTED Obstructive Sleep Apnea and HAS NOT received narcotic, sedative or anesthesia administration during this stay. Category 4: Outpatient in Procedural Areas with known sleep apnea or who screen positive for High Risk via the STOP/BANG questionnaire. Exam Exam Vital Signs Vital Signs Date Time Temp Pulse Resp B/P Pulse Ox O2 Delivery O2 Flow Rate FiO2 05/27/17 12:41 37.0 92 16 161/87 97 Room Air 05/27/17 11:19 85 20 97 Room Air 05/27/17 08:37 36.9 79 16 178/80 05/27/17 08:02 36.9 79 16 170/78 94 Room Air 05/27/17 07:52 36.9 79 16 170/78 05/27/17 06:42 36.9 80 18 181/80 General Appearance: Alert, Oriented X3, Cooperative, No Acute Distress HEENT/AIRWAY: MP 2 Lungs: Clear to Auscultation, Normal Air Movement Heart: Exam Unremarkable, Regular Rate/Rhythm, No Murmurs/Rubs/Gallops Additional Information coarse [facility] Meds/Labs/Diagnostics Admission Meds Current Medications Pantoprazole (Protonix) 40 mg BIDAC PO Last administered on 05/27/17 07:44; Start 05/26/17 at 16:30 Pentoxifylline (Trental) 400 mg TID PO Last administered on 05/26/17 20:37; Start 05/26/17 at 20:30 Prednisone (Deltasone) 5 mg DAILY PO Last administered on 05/27/17 07:43; Start 05/27/17 at 08:30 Albuterol/ Ipratropium 3 ml 3 ml ONCE ONCE NEB Last administered on 05/26/17 17:23; Start 05/26/17 at 17:10; Stop 05/26/17 at 17:18; Status DC Sodium Chloride (Normal Saline) 250 ml @ 10 mls/hr Q24H IV Last administered on 05/27/17 03:44; Start 05/27/17 at 02:55; Stop 05/29/17 at 02:54 Furosemide (Lasix Inj) 40 mg ONCE ONCE IVPUSH Last administered on 05/27/17 10:53; Start 05/27/17 at 10:40; Stop 05/27/17 at 10:46; Status DC Labs Test 05/26/17 11:20 05/26/17 13:15 05/27/17 11:20 Prothrombin Time 14.8sec (8.1-12.5) Prothromb Time International Ratio 1.37ratio Hold Mckeon Top Tube Received (Received) Urine Color Straw (YELLOW) Urine Appearance Hazy (CLEAR,HAZY) Urine pH 6.5 (5.0-8.0) Urine Specific Thompson 1.005 (1.003-1.035) Urine Protein Negativemg/dL (NEG,TRACE) Urine Glucose (UA) Negativemg/dL (NEGATIVE) Urine Ketones Negativemg/dL (NEGATIVE) Urine Occult Blood Negative (NEGATIVE) Urine Nitrite Negative (NEGATIVE) Urine Bilirubin Negative (NEGATIVE) Urine Urobilinogen Normalmg/dL (NORMAL) Urine Leukocyte Esterase Negative (NEGATIVE) Urine RBC 0-2/hpf (0-2) Urine WBC 0-5/hpf (0-5) Urine Epithelial Cells Occasional/hpf (NONE-MOD) Urine Crystals None seen (NONE SEEN) Urine Bacteria None/hpf (NONE-FEW) Urine Hyaline Casts None/lpf (NONE) Urine Granular Casts None seen (NONE SEEN) Urine Waxy Casts None seen (NONE SEEN) Urine Red Blood Cell Casts None seen (NONE SEEN) Urine White Blood Cell Casts None seen (NONE SEEN) Urine Mucus None seen (None Seen) Urine Trichomonas None seen (NONE SEEN) Urine Yeast None (NONE SEEN) Urinalysis Comment None Urine Culture Reflexed Not indicated Hold Urine Received (Received) White Blood Count 5.1th/mm3 (3.8-10.1) Red Blood Count 4.66mil/mm3 (4.40-5.80) Hemoglobin 10.8g/dL (13.8-17.2) Hematocrit 34.7% (41.0-50.0) Mean Corpuscular Volume 74.5fL (81-100) Mean Corpuscular Hemoglobin 23.2pg (27.0-35.0) Mean Corpuscular Hemoglobin Concent 31.1% (32.0-37.0) Red Cell Distribution Width 19.6% (12.3-15.4) Platelet Count 247bil/L (150-400) Neutrophils (%) (Auto) 76.6% (40-74) Lymphocytes (%) (Auto) 8.5% (14-46) Monocytes (%) (Auto) 7.3% (4-12) Eosinophils (%) (Auto) 5.0% (0-5) Basophils (%) (Auto) 2.4% (0-3) Sodium Level 142mEq/L (134-144) Potassium Level 4.2mEq/L (3.5-5.2) Chloride Level 104mEq/L (97-108) Carbon Dioxide Level 23mmol/L (18-29) Blood Urea Nitrogen 12mg/dL (8-27) Creatinine 1.31mg/dL (0.76-1.27) Estimat Glomerular Filtration Rate 56mL/min (>59) Glucose Level 113mg/dL (60-99) Calcium Level 9.1mg/dL (8.5-10.1) Magnesium Level 2.0mg/dL (1.6-2.6) Total Bilirubin 0.6mg/dL (0.0-1.2) Aspartate Amino Transf (AST/SGOT) 13U/L (0-50) Alanine Aminotransferase (ALT/SGPT) 9U/L (0-44) Alkaline Phosphatase 123U/L (25-160) Total Protein 6.7g/dL (6.4-8.4) Albumin 4.3g/dL (3.4-5.0) Plan Impression Patient chart reviewed, patient interviewed and anesthestic plan with risks, benefits, and alternatives discussed, and informed consent obtained. NPO per Anesth. Guidelines: Yes ASA Physical Status: ASA3 Severe Disease Anesthetic Plan: MAC Bene/Risks/Altern/Consents: Yes HP Complete Prior to Induction: Yes Elba Sapp MD May 27, 2017 12:47
[2017-05-27] MEDS ORDERED: Propofol 10 mg/mL 20 mL Inj ONE (12:59)
[2017-05-27] MEDS ORDERED: fentaNYL-PF 50 mCg/mL 2 mL Inj ONE (12:59)
--- NOTE | 2017-05-27 13:01 | PCM.PNMED ---
Subjective Date of Service May 27, 2017 Subjective pt denied abd pain, but had black tarry stools with blood, which he never seen before, FOBT came back negative. h/h not appropriately elevated 7.1 last night, getting third unit of pRBC this AM pt has mild dyspnea, thinks this is from asthma. neb tx helped O2 sat remained okay on RA pt denied abd pain, n, v, tolerated dinner last night. kept in NPO, Exam Vital Signs Vital Sign - Last Date Time Temp Pulse Resp B/P Pulse Ox O2 Delivery O2 Flow Rate FiO2 05/27/17 08:37 36.9 79 16 178/80 05/27/17 08:02 94 Room Air Intake and Output 05/26/17 05/26/17 05/27/17 Cumulative From/Thru 15:00 23:00 07:00 05/26/17 10:51 - 05/27/17 06:42 Intake Total 1615 ml 1064 ml 2679 ml Output Total 800 ml 350 ml 1200 ml 2350 ml Balance -800 ml 1265 ml -136 ml 329 ml Intake Oral 1118 ml 700 ml 1818 ml IV Total 497 ml 364 ml 861 ml Output Urine Total 800 ml 350 ml 1200 ml 2350 ml # Voids 2 1 3 Exam NAD, comfortably laying down on the bed no JVD, MMM, no LAD RRR, nl s1, s2 no mrg diffuse exp wheezing, polyphasic, no crackles S,ND,NT,normoactive BS+ warm, no edema, pulses 2/2 IVs and Medications Medications Reviewed: Medications were reviewed in detail Lab and Diagnostics Result Diagram: 05/26/17 2310 05/26/17 1120 Assessment & Plan Celso Quiroz is a 81-year-old man with 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 Acute, active # Acute on chronic blood loss anemia presumably secondary to recurrent AVM bleed , present on admission, active. FOBT+ on admission. h/h dropped 1 from baseline. it's possible that pt has very mild degree chronic bleeding from AVM. No s/s of active GIB, symptom are unremarkable.pt received PPI 80mg iv in ED. reportedly had colonscopy done 4yrs ago, which didn't show signs of bleeding or mass. Follow up h/h seemed not appropriately elevated after 1unit. 05/27, pt had episode of hematochezia, melena, however repeat FOBT returned negative. GI was consulted. 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 Subhash Calderón, recently finishsed, FU with [facility] next week #PE on Coumadin, INR1.3, hold off on Coumadin for now #Atrial fibrillation, hold off Coumadin for now, telemetry #Peripheral vascular disease, hold Plavix, warfarin, continue pentoxifylline, low threshold to resume plavix #HTN (hypertension), Continue lisinopril #Chronic renal insufficiency, stage III (moderate), Monitor BMP Dispo: Patient is admitted under observation status with expectation that she will be discharged within 24-48 hours, diet:general dvt ppx:SCD Full code CODE STATUS: FULL CODE VTE Mechanical Devices: Intermittant Pneumatic CD Time spent 35min Alvaro Romano MD May 27, 2017 10:11
[2017-05-27] MEDS ORDERED: Lactated Ringer's 1,000 ML IV ONE ×2 (13:07)
[2017-05-27] MEDS ORDERED: Lactated Ringer's 1,000 ML IV SCH (13:17)
--- NOTE | 2017-05-27 13:17 | PCM.ANEP1 ---
Post Anesthesia PACU Phase 1 Assessment Vital Signs Vital Signs Date Time Temp Pulse Resp B/P Pulse Ox O2 Delivery O2 Flow Rate FiO2 05/27/17 12:41 37.0 92 16 161/87 97 Room Air 05/27/17 11:19 85 20 97 Room Air 05/27/17 08:37 36.9 79 16 178/80 05/27/17 08:02 36.9 79 16 170/78 94 Room Air 05/27/17 07:52 36.9 79 16 170/78 05/27/17 06:42 36.9 80 18 181/80 Anesthetic Administered: MAC Level of Alertness: Awake, talking Pain: No Nausea or Vomiting: No CV Function & Hydration Stable: Yes Airway Device: Lungs: Clear to Auscultation, Normal Air Movement PACU Phase 2 Assessment Patient Instructions Provided: N/A Elba Sapp MD May 27, 2017 13:17
[2017-05-27] MEDS ORDERED: MetoCLOpramide 5 mg/mL 2 mL Inj IVPUSH PRN (13:20)
[2017-05-27] MEDS ORDERED: Ondansetron 2 mg/mL 2 mL Inj IVPUSH PRN (13:20)
--- NOTE | 2017-05-27 13:53 | ENDO ---
[address] [address] ENDOSCOPY PROCEDURE PATIENT: MONTSE MARIN : 1935 MR#: [id number] ADMIT: 05/26/2017 JOB ID: [id number] DATE OF SERVICE: 05/26/2017 TYPE OF OPERATION: Esophagogastroduodenoscopy, biopsy. PREOPERATIVE DIAGNOSES: Anemia and gastrointestinal bleed. POSTOPERATIVE DIAGNOSES: 1. 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 2. Small hiatal hernia. 3. No arteriovenous malformations or overt signs of bleeding that were seen. ANESTHESIA: Monitored anesthesia care. COMPLICATIONS: None. BLOOD LOSS: Minimal. DESCRIPTION OF PROCEDURE: After risks and benefits explained to the patient, informed consent was obtained. After anesthesia administered, upper endoscope was then inserted in the mouth and intubated into the esophagus, stomach, second portion of duodenum. Mucosa carefully examined. After procedure was done, the scope was withdrawn and the procedure terminated. FINDINGS: Upon inspection of the esophagus, there was an irregular Z-line suspicious for Fernando's located from 35 to 38 cm from the incisors which was biopsied in four-quadrant fashion. Z-line located at 38 cm from incisors. Upon entering the stomach, the stomach also appeared normal without masses, ulcers, or lesions. No AVMs or ulcers were seen. Retroflexion showed small hiatal hernia. Duodenal bulb, first and second portion were normal without overt signs of bleeding. Biopsies taken at distal esophagus in four-quadrant fashion. IMPRESSIONS: 1. 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 2. Small hiatal hernia. RECOMMENDATIONS: 1. Await pathology results. 2. Protonix 40 mg by mouth once a day. 3. Given the fact that the patient was guaiac-negative in-house and hemoglobin is stable at this point in time, would do serial hemoglobins at this point in time and hold off on colonoscopy at this time. If pt has overt signs bleeding, then consider colonoscopy 4. Recommendations per GI consultation team. MTDD
--- NOTE | 2017-05-27 16:47 | NUR ---
Case Management: IMM explained to patient and family at 1550, all questions answered. Signed original placed in chart, copy given to patient. Bela Connor RN
[2017-05-28] VITALS (9 sets, daily range): BP systolic 111–179; BP diastolic 67–72; PULSE 71–110; RESP 20–28; O2SAT 96–99
[2017-05-28] MEDS: Albuterol 2.5 mg/3 mL Inhalation Solution NEB PRN (00:53)
--- NOTE | 2017-05-28 02:11 | NUR ---
resp: pt. having harsh, bronchospastic coughing spells, chest sounds tight and wheezy, paged hospitalist for albuterol neb order prn, helpful to pt, less coughing episodes, sats 94%, pt. voiding well, received lasix earlier following blood transfusion. continue to monitor.
[2017-05-28] MEDS: Albuterol-Ipratropium 3 mL Inhalation Solution NEB PRN (06:02)
[2017-05-28 07:09] LABS: BASOPHILS % (AUTO) 0.3 % (0-3); EOSINOPHILS % (AUTO) 0.6 % (0-5); MONOCYTES % (AUTO) 8.2 % (4-12); Mean Corpuscular Volume 74.6 fL (81-100); NEUTROPHILS % (AUTO) 86.4 % (40-74); Platelet Count 236 bil/L (150-400)
[2017-05-28] MEDS ORDERED: Furosemide 10 mg/mL 4 mL Inj IVPUSH ONE (08:30)
[2017-05-28] MEDS: Albuterol-Ipratropium 3 mL Inhalation Solution NEB SCH ×5 (09:00→23:38)
[2017-05-28] MEDS: Pentoxifylline 400 mg ER12 Tablet PO SCH ×3 (10:24→20:41)
[2017-05-28] MEDS: predniSONE 5 mg Tablet PO SCH (10:24)
[2017-05-28] MEDS: Pantoprazole 40 mg ER24 Tablet PO SCH (10:24)
--- NOTE | 2017-05-28 11:13 | PCM.PNMED ---
Subjective Date of Service May 28, 2017 Subjective GASTROENTEROLOGY PROGRESS NOTE: Attending Physician: Minh Andrea MD Resident Physician: Bhumika Marinelli DO No acute events overnight. No source for upper gastrointestinal bleeding identified on EGD, stool guaiac negative, and H/H is stable. Patient reports persistent cough, which is chronic and responsive to alubterol inhalers at this time. He denies chest pain, worsening shortness of breath, abdominal pain, nausea, vomiting, diarrhea or constipation. Exam Vital Signs Vital Sign - Last Date Time Temp Pulse Resp B/P Pulse Ox O2 Delivery O2 Flow Rate FiO2 05/28/17 06:03 107 24 98 Room Air 05/28/17 04:58 37.4 111/71 2.00 Intake and Output 05/27/17 05/27/17 05/28/17 Cumulative From/Thru 15:00 23:00 07:00 05/26/17 10:51 - 05/28/17 06:20 Intake Total 1200 ml 950 ml 475 ml 5304 ml Output Total 2925 ml 675 ml 5950 ml Balance 1200 ml -1975 ml -200 ml -646 ml Intake Oral 550 ml 475 ml 2843 ml IV Total 825 ml 400 ml 2086 ml Packed Cells 375 ml 375 ml Output Urine Total 2925 ml 675 ml 5950 ml # Voids 3 Exam General: Elderly male in no acute distress. Appropriately interactive HEENT: Normocephalic, atraumatic. Anicteric sclerae, moist mucosa. Cardiovascular: Regular rhythm with no murmurs, rubs, or gallops appreciated Pulmonary: Lung sounds coarse with diffuse inspiratory and expiratory wheeze and crackles on the left. Normal respiratory effort Abdomen: Bowel tones present. Soft, nontender, mildly distended with no rebound or guarding. No masses Extremities: Warm, well perfused with no edema. Neurological: AOx3, grossly neurologically intact. Normal speech. IVs and Medications Medications Reviewed: Medications were reviewed in detail Lab and Diagnostics Laboratory Tests Test 05/27/17 11:20 05/28/17 06:40 White Blood Count 5.1th/mm3 (3.8-10.1) 16.8th/mm3 (3.8-10.1) Red Blood Count 4.66mil/mm3 (4.40-5.80) 4.60mil/mm3 (4.40-5.80) Hemoglobin 10.8g/dL (13.8-17.2) 10.6g/dL (13.8-17.2) Hematocrit 34.7% (41.0-50.0) 34.3% (41.0-50.0) Mean Corpuscular Volume 74.5fL (81-100) 74.6fL (81-100) Mean Corpuscular Hemoglobin 23.2pg (27.0-35.0) 23.0pg (27.0-35.0) Mean Corpuscular Hemoglobin Concent 31.1% (32.0-37.0) 30.9% (32.0-37.0) Red Cell Distribution Width 19.6% (12.3-15.4) 20.0% (12.3-15.4) Platelet Count 247bil/L (150-400) 236bil/L (150-400) Neutrophils (%) (Auto) 76.6% (40-74) 86.4% (40-74) Lymphocytes (%) (Auto) 8.5% (14-46) 4.2% (14-46) Monocytes (%) (Auto) 7.3% (4-12) 8.2% (4-12) Eosinophils (%) (Auto) 5.0% (0-5) 0.6% (0-5) Basophils (%) (Auto) 2.4% (0-3) 0.3% (0-3) Sodium Level 142mEq/L (134-144) Potassium Level 4.2mEq/L (3.5-5.2) Chloride Level 104mEq/L (97-108) Carbon Dioxide Level 23mmol/L (18-29) Blood Urea Nitrogen 12mg/dL (8-27) Creatinine 1.31mg/dL (0.76-1.27) Estimat Glomerular Filtration Rate 56mL/min (>59) Glucose Level 113mg/dL (60-99) Calcium Level 9.1mg/dL (8.5-10.1) Magnesium Level 2.0mg/dL (1.6-2.6) Total Bilirubin 0.6mg/dL (0.0-1.2) Aspartate Amino Transf (AST/SGOT) 13U/L (0-50) Alanine Aminotransferase (ALT/SGPT) 9U/L (0-44) Alkaline Phosphatase 123U/L (25-160) Total Protein 6.7g/dL (6.4-8.4) Albumin 4.3g/dL (3.4-5.0) Microbiology 05/27/17 Campylobacter (PCR) -Negative Result Diagram: 05/28/17 0640 05/27/17 1120 Additional Diagnostics 05/27/17 - EGD with biopsy IMPRESSIONS: 1. 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 2. Small hiatal hernia. RECOMMENDATIONS: 1. Await pathology results. 2. Protonix 40 mg by mouth once a day. 3. Given the fact that the patient was guaiac-negative in-house and hemoglobin is stable at this point in time, would do serial hemoglobins at this point in time and hold off on colonoscopy at this time. If pt has overt signs bleeding, then consider colonoscopy 4. Recommendations per GI consultation team. Kurt Caal MD 05/27/17 [id number] . 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 He presented to the ED from the INR clinic with a hemoglobin of 6.7 and GI consulted for further evaluation of GI bleeding. Acute on chronic blood loss anemia presumably secondary to recurrent AVM bleed -Hb 6.7/Hct 24.2 with four day history of melena; s/p 3units pRBCs. Baseline Hb of ~8.0 in patient with hx of chronic bleeding from AVM. -Review of capsule endoscopy with some non-bleeding AVMs in the proximal small bowel but incomplete exam. -Due to severity of patient's anemia, history of recurrent bleeding, and chronic anticoagulation. Will repeat colonoscopy and may consider repeat capsule endoscopy, pending endoscopy results. -Monitor H/H, transfuse blood products as needed for Hb <7.0 -EGD results as above. 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 Subhash Calderón, recently finishsed, FU with [facility] next week - Hs of pulmonary embolism, on Coumadin, INR1.3, hold off on Coumadin for now - Atrial fibrillation, hold off Coumadin for now, telemetry - Peripheral vascular disease, hold Plavix for today, pentoxifylline and warfarin - HTN (hypertension), Continue lisinopril - Chronic renal insufficiency, stage III (moderate), Monitor BMP . Pain Evaluation: Adequate Pain Control VTE Mechanical Devices: Intermittant Pneumatic CD Attending Statement Patient seen and examined. Agree with assessment and plan as described by Dr Marinelli. Considering the degree of anemia at presentation, i believe it is worthwhile to pursue repeat colonoscopy and maybe even consider capsule if need be. Bhumika Marinelli DO May 28, 2017 08:36 Minh Andrea MD May 28, 2017 22:05
--- NOTE | 2017-05-28 11:22 | PCM.PNMED ---
Subjective Date of Service May 28, 2017 Subjective pt underwent EGD well, stated that he was bit confused after procedure. no bleeding source found plan for colonoscopy per GI service pt denied abd pain, h/h remained stable this AM, no black or bloody stools Exam Vital Signs Vital Sign - Last Date Time Temp Pulse Resp B/P Pulse Ox O2 Delivery O2 Flow Rate FiO2 05/28/17 06:03 107 24 98 Room Air 05/28/17 04:58 37.4 111/71 2.00 Intake and Output 05/27/17 05/27/17 05/28/17 Cumulative From/Thru 15:00 23:00 07:00 05/26/17 10:51 - 05/28/17 06:20 Intake Total 1200 ml 950 ml 475 ml 5304 ml Output Total 2925 ml 675 ml 5950 ml Balance 1200 ml -1975 ml -200 ml -646 ml Intake Oral 550 ml 475 ml 2843 ml IV Total 825 ml 400 ml 2086 ml Packed Cells 375 ml 375 ml Output Urine Total 2925 ml 675 ml 5950 ml # Voids 3 Exam NAD, comfortably laying down on the bed no JVD, MMM, no LAD RRR, nl s1, s2 no mrg diffuse exp wheezing, polyphasic, no crackles S,ND,NT,normoactive BS+ warm, no edema, pulses 2/2 IVs and Medications Medications Reviewed: Medications were reviewed in detail Lab and Diagnostics Result Diagram: 05/28/17 0640 05/27/17 1120 Additional Diagnostics 05/27/17 - EGD with biopsy IMPRESSIONS: 1. 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 2. Small hiatal hernia. RECOMMENDATIONS: 1. Await pathology results. 2. Protonix 40 mg by mouth once a day. 3. Given the fact that the patient was guaiac-negative in-house and hemoglobin is stable at this point in time, would do serial hemoglobins at this point in time and hold off on colonoscopy at this time. If pt has overt signs bleeding, then consider colonoscopy 4. Recommendations per GI consultation team. Kurt Caal MD 05/27/17 [id number] . 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 Acute, active # Acute on chronic blood loss anemia, unknown source, present on admission, active. FOBT+ on admission per ED. h/h dropped 1 from baseline. Initialy it was suspected that pt has very mild degree chronic bleeding from previously found AVM. No s/s of active GIB, symptom are unremarkable.pt received PPI 80mg iv in ED. reportedly had colonscopy/capsule endoscopy done 4yrs ago, which didn' t show signs of bleeding or mass. Follow up h/h seemed not appropriately elevated after 1unit. 05/27, pt had episode of hematochezia, melena, however repeat FOBT returned negative. GI was consulted. 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 Subhash Calderón, recently finishsed, FU with [facility] next week #PE on Coumadin, INR1.3, hold off on Coumadin for now #Atrial fibrillation, hold off Coumadin for now, telemetry #Peripheral vascular disease, hold Plavix, warfarin, continue pentoxifylline, low threshold to resume plavix #HTN (hypertension), Continue lisinopril #Chronic renal insufficiency, stage III (moderate), Monitor BMP Dispo:pending colonoscopy, pt does have appt with [facility] on Friday, hoping to d/c prior to that. diet:general dvt ppx:SCD Full code CODE STATUS: FULL CODE VTE Mechanical Devices: Intermittant Pneumatic CD Time spent 35min Alvaro Romano MD May 28, 2017 11:22
[2017-05-28] MEDS ORDERED: PEG/Electrolytes 4,000 mL Solution PO ONE (16:00)
--- NOTE | 2017-05-28 18:11 | NUR ---
breathing and bowel prep Pt with audible wheezing R>L lung. Denies SOB but has productive cough. Pt reports mucoid BM which is what he has had for the last few days. Started bowel prep for colonoscopy. present throughout shift. Hourly rounding provided, call light within reach.
[2017-05-29] VITALS (13 sets, daily range): BP systolic 135–151; BP diastolic 67–76; PULSE 87–109; RESP 14–22; O2SAT 92–98
[2017-05-29] MEDS: Albuterol-Ipratropium 3 mL Inhalation Solution NEB SCH ×5 (04:29→21:01)
[2017-05-29 05:46] LABS: BASOPHILS % (AUTO) 0.4 % (0-3); MONOCYTES % (AUTO) 8.1 % (4-12); Mean Corpuscular Volume 74.3 fL (81-100); NEUTROPHILS % (AUTO) 83.9 % (40-74); Platelet Count 229 bil/L (150-400)
--- NOTE | 2017-05-29 06:08 | NUR ---
Bowel prep Pt able to drink all of the ordered Colyte-prep but vomited x1 shortly after he finished the prep. Pt had mostly watery stool in AM, that is still brown with some solid material in it. Pt has tremors when getting up which he attributes to being utterly exhausted. Pt denies any pain, no blood noted in stool.
[2017-05-29 06:12] LABS: Magnesium 1.7 mg/dL (1.6-2.6)
[2017-05-29] MEDS ORDERED: Potassium Chloride 20 mEq SR Tablet PO ONE (08:10)
[2017-05-29] MEDS: predniSONE 5 mg Tablet PO SCH (09:12)
[2017-05-29] MEDS: Pantoprazole 40 mg ER24 Tablet PO SCH (09:12)
[2017-05-29] MEDS: Pentoxifylline 400 mg ER12 Tablet PO SCH ×3 (09:12→23:11)
--- NOTE | 2017-05-29 09:34 | PROG NOTE ---
[address] [address] PROGRESS NOTE PATIENT: MONTSE MARIN : 1935 MR#: [id number] ADMIT: 05/26/2017 JOB ID: [id number] DATE: 05/29/2017 SUBJECTIVE: The patient is a 81-year-old gentleman with T1 N3 M1 squamous cell carcinoma of the left upper lung with a separate right upper lobe metastatic deposit. He has been on immunotherapy with pembrolizumab. He has had intermittent episodes of severe anemia, requiring transfusion support. At admission on May 26, 2017 he had a hemoglobin of 6.7 with hematocrit of 24.2%. He has been transfused with a total of at least 3 units of packed red blood cells during this hospitalization. He has had dark stools and noted a small amount of blood on his stools. Upper endoscopy on May 26, 2017 showed an irregular Z-line, suspicious for Fernando esophagitis from about 35 cm to 38 cm, but no signs of overt bleeding. There was a small hiatal hernia. He is n.p.o. for upcoming colonoscopy later today. He has had some mild confusion. OBJECTIVE: Vitals: T 36.9, P 109, R 20, BP 138/69. O2 saturation 94% on 2 L oxygen by nasal cannula. HEENT: Conjunctivae slightly pale. Mucous membranes somewhat dry. No oral lesions. Nodes: Shotty lymphadenopathy in the neck. Chest: Scattered expiratory wheezes. Cardiac examination: Tachycardic but regular with normal S1, S2. Abdomen: Soft, nontender. Active bowel tones. No splenomegaly or masses. Extremities: No edema. 1+ distal pulses. LABORATORIES: WBC 13.8 with 84% neutrophils, hemoglobin 10.8, hematocrit 34.9%, MCV 74, platelets 229,000. Sodium 141, potassium 3.2, BUN 19, creatinine 1.44. Glucose 112. AST 13, ALT 7, alkaline phosphatase 115. IMAGING: CT brain, neck, chest, abdomen, pelvis (May 23, 2017). No enhancing lesions in the brain. Chronic bilateral ischemic changes. Compared to March 03, 2017, the primary lesion in the right upper lung is stable. Suspicious spiculated nodules in the left lower lobe have resolved as has an irregular density in the posterolateral right middle lobe. No other disease was identified in the neck, abdomen or pelvis. ASSESSMENT AND PLAN: 1. T1 N3 M1 (stage IV) squamous cell carcinoma of the left upper lung with a right upper lobe metastatic deposit: Disease appears to be responding to immunotherapy, with imaging earlier this week confirming resolution of disease in the left lower lobe and an irregular density in the posterolateral right middle lobe. His right upper lobe lesion is stable. There was no other metastatic disease elsewhere in the body. Proceed with inpatient management of his anemia, likely due to intestinal bleeding. Await results of upcoming colonoscopy. Note that immunotherapy can cause enteritis/colitis. The patient is due for his pembrolizumab, but this will be delayed due to his current hospitalization.
[2017-05-29] MEDS ORDERED: Sodium Biphos-Phos 133 mL Enema RECTAL ONE (10:35)
[2017-05-29] MEDS ORDERED: Lactated Ringer's 1,000 ML IV ONE (13:01)
--- NOTE | 2017-05-29 13:01 | PCM.HPANE ---
Patient Data Surgeon Admitting Provider:Alvaro Romano MD Attending Provider:Kevon Lainez MD Primary Care Physician:Sonam Overton PA-C Other Provider: Reason for Visit Symptomatic Anemia/Upper Gi Bleed Ht/WT & BMI Height (Feet): 6 Height (Inches): 0.00 Weight (Kilograms): 78.100 Body Mass Index 23.00 Allergies Coded Allergies: Wasp (Verified Allergy, Severe, Anaphylaxis, 04/10/17) Uncoded Allergies: BEES - ANAPHYLAXIS (Allergy, Severe, anaphylaxis, 10/29/13) Past Anesthesia History Anesthesia History: Positive for:: Fam Anesthesia Reaction (mom had difficulty coming out of anesthesia), Denies:: Abnormal Airway, Anesthesia Reactions, Difficult Intubation, Fam Malignant Hypertherm, Malignant Hyperthermia Diabetes History Hx Diabetes?: No MRSA MRSA: No Medications Blood Thinner: Coumadin, Plavix Hypertension Medication: No Home Meds Incl Beta Gabby: No Active Scripts Pentoxifylline 400 Mg Tablet.er400 Mg PO TID 30 Days Prov:Jesse Fishman MD 06/13/14 Reported Medications Warfarin Sodium 2 Mg Tablet3 Mg PO fri, 30 Days Ref 0 05/26/17 [sudafed] No Conflict Check30 Mg PO q6 hours PRN For Congestion 05/26/[address] 40 Mg Tablet.dr40 Mg PO DAILY Ref 0 05/26/17 Prednisone (PredniSONE)5 Mg Tab5 Mg PO DAILY #30 TABLET Ref 3 03/27/17 Clopidogrel Bisulfate (Plavix)75 Mg Pbamfx23 Mg PO DAILY #30 TABLET Ref 3 03/27/17 Albuterol HFA (Proair HFA)8.5 Gm Hfa.aer.ad2 Puffs INHALATION Q4H PRN For Shortness of Breath #1 INHALER 03/12/16 Ipratropium/Albuterol Sulfate (Iprat-Albut 0.5-3(2.5) mg/3 mL Inhalant Soln)3 Ml Ampul.neb3 Ml IH Q6 PRN For Wheezing Ref 0 03/12/16 Warfarin Sodium 2 Mg Tablet2 Mg PO Sibley,Tu,We,Fr,Sa 30 Days Ref 0 06/13/14 Discontinued Reported Medications Pembrolizumab (Keytruda)100 Mg/4 Ml (25 Mg/Ml) Uikj036 Mg IV 05/07/17 Ranitidine 75 Mg Txvkss89 Mg PO DAILY PRN For Indigestion Ref 0 04/10/17 Phenylephrine HCl (Sudafed PE)10 Mg Hzxmlw06 Mg PO PRN For Congestion 04/10/17 [chlorphenamine] No Conflict Check4 Mg ORAL DAILY PRN For Congestion 04/10/17 Pantoprazole Sodium (Protonix Granules)40 Mg Granpkt.dr40 Mg PO DAILY #30 PACKET Ref 3 03/27/17 Cyanocobalamin (Vitamin B12)500 Mcg Fqunjd508 Mcg PO DAILY 12/12/16 Warfarin Sodium 1 Mg Tablet3 Mg PO 30 Days Ref 0 add to 2mg daily tab for total of 3mg 03/11/16 History History of ENT Problems?: Yes HEENT History: Positive for:: Hearing Problem (not wearing to endo) Sinus Problem (maxillary sinus (Lt) inflammation) Denies:: Abnormal Airway Cataracts Difficult Intubation Dysphagia Denture Type: Partial- Upper Teeth Condition: Within Normal Limits Hx of Heart Problems?: Yes Cardiovascular History: Positive for:: Cardiac Surgery (angioplsavanna zhong 2012) Edema Irregular Heartbeat (h/o atrial fibrillation) Denies:: AICD Atrial Fibrillation Chest Pain Congestive Heart Failure Heart Murmur (ECHO 09/2013) Hypertension Pacemaker Thrombophlebitis Valvular Heart Disease Hx of Respiratory Problem?: Yes Respiratory History: Positive for:: Asthma COPD Cough Dyspnea Hemoptysis (During radiation) Oxygen Administration (O2 SATS <94% IN HOSP, SENT HOME ON O2 10/23/2013) Pneumonia (HOSP. 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 Pressure Ulcers Hx Musculoskeletal Problems?: Yes Musculoskeletal History: Positive for:: Back Injury Musculoskeletal Trauma (REMOTE HX OF FOOT INJURY-USES CANE) Denies:: Fibromyalgia Joint Replacement Hx of Psycho/Social Problems?: No Psycho Social History: Denies:: Anxiety Bipolar Disorder Hx Depression Suicide Attempt Hx Surgeries?: Yes (prostatectomy, stents in right leg for PVD) Hx Any Other Health Problems?: Yes Other History: Positive for:: Cancer (prostate '02 and lung '13 ) Hospitalization (10/19- PNEUMONIA,GI BLEED,SFA OCCLUSION LT LEG) Denies:: Endocrine Disease Thyroid Disease History Blood Transfusions: Positive for:: Accept Blood Products? Blood Transfusions Denies:: Blood Transfuse Reaction Hx Diabetes: No Hx Alcohol Use: Yes ("1-2 bottle of beer a week")Hx Substance Use: No Smoking Status: Former Smoker Have You Smoked inLast 12 mo: No Stop/Bang Treated for Sleep Apnea?: No Do You Have a CPAP Machine?: No S-Snoring: Do You Snore Loudly: Yes T-Tired: feel tired, fatigued: No O-Obsered: Observed not breath: No P-Blood Pressure: treated: No B- Body Mass Index > 35 kg/m2: No A- Age over 50: Yes N- Neck Large Circumference: No G- Gender Male: Yes YINKA Total Score: 3 YINKA Risk Assessment: Low Risk, <3 Yes Risk Assessment Category Category 1A: Patient has history of documented sleep apnea, and HAS NOT received any narcotic, sedative or anesthesia administration during this stay. Category 1B: Patient has history of documented sleep apnea, and HAS received any narcotic , sedative or anesthesia administration during this stay Category 2: Patient has SUSPECTED Obstructive Sleep Apnea, and HAS received any narcotic , sedative or anesthesia administration during this stay. Category 3: Patient has SUSPECTED Obstructive Sleep Apnea and HAS NOT received narcotic, sedative or anesthesia administration during this stay. Category 4: Outpatient in Procedural Areas with known sleep apnea or who screen positive for High Risk via the STOP/BANG questionnaire. Low Risk, <3 Yes Exam Exam Vital Signs Vital Signs Date Time Temp Pulse Resp B/P Pulse Ox O2 Delivery O2 Flow Rate FiO2 05/29/17 12:47 91 20 95 Nasal Cannula 3.00 05/29/17 09:00 Supplement Oxygen 05/29/17 08:26 98 20 95 Nasal Cannula 3.00 General Appearance: Alert, Oriented X3, Cooperative, No Acute Distress HEENT/AIRWAY: MP 2 Lungs: Clear to Auscultation, Normal Air Movement Heart: Exam Unremarkable, Regular Rate/Rhythm, No Murmurs/Rubs/Gallops Meds/Labs/Diagnostics Admission Meds Current Medications Polyethylene Glycol/ Electrolytes (Colyte) 4,000 ml ONCE ONCE PO Last administered on 05/28/17 17:38; Start 05/28/17 at 16:00; Stop 05/28/17 at 16:01 ; Status DC Potassium Chloride (K-Dur) 40 meq ONCE ONCE PO Last administered on 05/29/17 09:12; Start 05/29/17 at 08:10; Stop 05/29/17 at 08:15; Status DC Labs Test 05/26/17 11:20 05/26/17 13:15 05/29/17 05:15 Prothrombin Time 14.8sec (8.1-12.5) Prothromb Time International Ratio 1.37ratio Hold Mckeon Top Tube Received (Received) Urine Color Straw (YELLOW) Urine Appearance Hazy (CLEAR,HAZY) Urine pH 6.5 (5.0-8.0) Urine Specific [place] 1.005 (1.003-1.035) Urine Protein Negativemg/dL (NEG,TRACE) Urine Glucose (UA) Negativemg/dL (NEGATIVE) Urine Ketones Negativemg/dL (NEGATIVE) Urine Occult Blood Negative (NEGATIVE) Urine Nitrite Negative (NEGATIVE) Urine Bilirubin Negative (NEGATIVE) Urine Urobilinogen Normalmg/dL (NORMAL) Urine Leukocyte Esterase Negative (NEGATIVE) Urine RBC 0-2/hpf (0-2) Urine WBC 0-5/hpf (0-5) Urine Epithelial Cells Occasional/hpf (NONE-MOD) Urine Crystals None seen (NONE SEEN) Urine Bacteria None/hpf (NONE-FEW) Urine Hyaline Casts None/lpf (NONE) Urine Granular Casts None seen (NONE SEEN) Urine Waxy Casts None seen (NONE SEEN) Urine Red Blood Cell Casts None seen (NONE SEEN) Urine White Blood Cell Casts None seen (NONE SEEN) Urine Mucus None seen (None Seen) Urine Trichomonas None seen (NONE SEEN) Urine Yeast None (NONE SEEN) Urinalysis Comment None Urine Culture Reflexed Not indicated Hold Urine Received (Received) White Blood Count 13.8th/mm3 (3.8-10.1) Red Blood Count 4.70mil/mm3 (4.40-5.80) Hemoglobin 10.8g/dL (13.8-17.2) Hematocrit 34.9% (41.0-50.0) Mean Corpuscular Volume 74.3fL (81-100) Mean Corpuscular Hemoglobin 23.0pg (27.0-35.0) Mean Corpuscular Hemoglobin Concent 30.9% (32.0-37.0) Red Cell Distribution Width 20.7% (12.3-15.4) Platelet Count 229bil/L (150-400) Neutrophils (%) (Auto) 83.9% (40-74) Lymphocytes (%) (Auto) 5.4% (14-46) Monocytes (%) (Auto) 8.1% (4-12) Eosinophils (%) (Auto) 2.0% (0-5) Basophils (%) (Auto) 0.4% (0-3) Sodium Level 141mEq/L (134-144) Potassium Level 3.2mEq/L (3.5-5.2) Chloride Level 99mEq/L (97-108) Carbon Dioxide Level 25mmol/L (18-29) Blood Urea Nitrogen 19mg/dL (8-27) Creatinine 1.44mg/dL (0.76-1.27) Estimat Glomerular Filtration Rate 50mL/min (>59) Glucose Level 112mg/dL (60-99) Calcium Level 8.6mg/dL (8.5-10.1) Magnesium Level 1.7mg/dL (1.6-2.6) Total Bilirubin 0.6mg/dL (0.0-1.2) Aspartate Amino Transf (AST/SGOT) 13U/L (0-50) Alanine Aminotransferase (ALT/SGPT) 7U/L (0-44) Alkaline Phosphatase 114U/L (25-160) Total Protein 6.3g/dL (6.4-8.4) Albumin 3.9g/dL (3.4-5.0) Plan Impression Patient chart reviewed, patient interviewed and anesthestic plan with risks, benefits, and alternatives discussed, and informed consent obtained. NPO per Anesth. Guidelines: Yes ASA Physical Status: ASA3 Severe Disease Anesthetic Plan: MAC Bene/Risks/Altern/Consents: Yes HP Complete Prior to Induction: Yes Dayo Richmond MD May 29, 2017 13:01
[2017-05-29] MEDS ORDERED: Propofol 10 mg/mL 20 mL Inj ONE (13:53)
--- NOTE | 2017-05-29 14:34 | PCM.ANEP1 ---
Post Anesthesia PACU Phase 1 Assessment Vital Signs see anesthesia record Vital Signs Date Time Temp Pulse Resp B/P Pulse Ox O2 Delivery O2 Flow Rate FiO2 05/29/17 12:47 91 20 95 Nasal Cannula 3.00 05/29/17 09:00 Supplement Oxygen 05/29/17 08:26 98 20 95 Nasal Cannula 3.00 Anesthetic Administered: MAC Level of Alertness: Awake, talking Pain: No Pain Scale Score: 3 Nausea or Vomiting: No CV Function & Hydration Stable: Yes Airway Device: Oxygen Delivery: Nasal Cannula Lungs: Clear to Auscultation, Normal Air Movement PACU Phase 2 Assessment Complications: No Follow up Care: No Patient Instructions Provided: N/A Dayo Richmond MD May 29, 2017 14:34
--- NOTE | 2017-05-29 14:54 | ENDO ---
[address] [address] ENDOSCOPY PROCEDURE PATIENT: MONTSE MARIN : 1935 MR#: [id number] ADMIT: 05/26/2017 JOB ID: [id number] DATE OF SERVICE: 05/29/2017 PRIMARY PROVIDER: Sonam Overton PA-C PROCEDURE: Colonoscopy. INDICATIONS: A 81-year-old male on Coumadin and Plavix, who presented with severe anemia once again. Upper endoscopy did not really explain his symptoms. Repeat colonoscopy is therefore pursued. EQUIPMENT: [facility]190DL SEDATION: Monitored anesthesia as provided by Dr. Dayo Richmond. COMPLICATIONS: None identified. BOWEL PREPARATION: Fair. PROCEDURE INFORMATION: After the risks and benefits were explained, written and verbal informed consent was obtained. The patient was brought into the endoscopy suite and placed in the left lateral decubitus position. Sedation was achieved as above. A digital rectal examination accomplished. Mild internal hemorrhoids noted. The scope was introduced into the rectum and advanced to the cecum as identified by the appendiceal orifice and ileocecal valve. The terminal ileum was accessed. The scope was then slowly withdrawn to carefully examine the mucosa for any defects or lesions. Retroflexed views were accomplished in the rectum. The colon was decompressed. The scope removed from the patient who tolerated the procedure well. FINDINGS: No sign of new or old blood anywhere throughout the colon. No bleeding focus appreciated. No inflammatory features. The tattoo at around 18 cm from the anal verge was identified. There was a small residual of polyp focus close to where the tattoo was. No mass lesions throughout. No significant vascular pathology. There were a couple of other scattered diminutive polyps throughout the colon. The terminal ileum appeared visually normal. No signs of inflammation, new or old blood. No vascular malformations. ENDOSCOPIC DIAGNOSES: 1. No sign of recent lower gastrointestinal bleeding. 2. No obvious bleeding source identified. 3. Diminutive colon polyps. 4. Hemorrhoids. RECOMMENDATIONS: 1. The patient can have his diet advanced, to be discharged at the discretion of the hospitalist service. 2. Repeat outpatient capsule endoscopy would certainly be reasonable considering how he presented today. 3. I would repeat a colonoscopy with anesthesia in the next year considering the small polyps seen at today's examination. At that time it would be ideal to have the patient off his Plavix for a full week.
--- NOTE | 2017-05-29 15:03 | PCM.PNMED ---
Subjective Date of Service May 29, 2017 Subjective Asymptomatic now. Hemoglobin remained stable. Endoscopy and colonoscopy unrevealing of source of bleeding. Slightly increased creatinine noted. Exam Vital Signs Vital Sign - Last Date Time Temp Pulse Resp B/P Pulse Ox O2 Delivery O2 Flow Rate FiO2 05/29/17 14:50 100 16 136/69 97 Room Air 05/29/17 14:34 2 05/29/17 13:29 37.2 Intake and Output 05/28/17 05/28/17 05/29/17 Cumulative From/Thru 15:00 23:00 07:00 05/26/17 10:51 - 05/29/17 06:50 Intake Total 1020 ml 4150 ml 19231 ml Output Total 1700 ml 150 ml 7800 ml Balance -680 ml 4000 ml 2674 ml Intake Oral 1020 ml 4150 ml 8013 ml IV Total 2086 ml Packed Cells 375 ml Output Urine Total 1700 ml 7650 ml Emesis 150 ml 150 ml # Voids 3 # Bowel Movements 2 2 Exam NAD, comfortably laying down on the bed no JVD, MMM, no LAD RRR, nl s1, s2 no mrg diffuse exp wheezing, polyphasic, no crackles S,ND,NT,normoactive BS+ warm, no edema, pulses 2/2 IVs and Medications Medications Reviewed: Medications were reviewed in detail Lab and Diagnostics Result Diagram: 05/29/1751405/29/17514 Additional Diagnostics 05/27/17 - EGD with biopsy IMPRESSIONS: 1. 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 2. Small hiatal hernia. RECOMMENDATIONS: 1. Await pathology results. 2. Protonix 40 mg by mouth once a day. 3. Given the fact that the patient was guaiac-negative in-house and hemoglobin is stable at this point in time, would do serial hemoglobins at this point in time and hold off on colonoscopy at this time. If pt has overt signs bleeding, then consider colonoscopy 4. Recommendations per GI consultation team. Kurt Caal MD 05/27/17 1316 . Colonoscopy DATE OF SERVICE: 05/29/2017 PRIMARY PROVIDER: Sonam Overton PA-C PROCEDURE: Colonoscopy. INDICATIONS: A 81-year-old male on Coumadin and Plavix, who presented with severe anemia once again. Upper endoscopy did not really explain his symptoms. Repeat colonoscopy is therefore pursued. FINDINGS: No sign of new or old blood anywhere throughout the colon. No bleeding focus appreciated. No inflammatory features. The tattoo at around 18 cm from the anal verge was identified. There was a small residual of polyp focus close to where the tattoo was. No mass lesions throughout. No significant vascular pathology. There were a couple of other scattered diminutive polyps throughout the colon. The terminal ileum appeared visually normal. No signs of inflammation, new or old blood. No vascular malformations. ENDOSCOPIC DIAGNOSES: 1. No sign of recent lower gastrointestinal bleeding. 2. No obvious bleeding source identified. 3. Diminutive colon polyps. 4. Hemorrhoids. RECOMMENDATIONS: 1. The patient can have his diet advanced, to be discharged at the discretion of the hospitalist service. 2. Repeat outpatient capsule endoscopy would certainly be reasonable considering how he presented today. 3. I would repeat a colonoscopy with anesthesia in the next year considering the small polyps seen at today's examination. At that time it would be ideal to have the patient off his Plavix for a full week. 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 FOBT+ on admission per ED. h/h dropped 1 from baseline. Initialy it was suspected that pt has very mild degree chronic bleeding from previously found AVM. No s/s of active GIB, symptom are unremarkable.pt received PPI 80mg iv in ED. reportedly had colonscopy/capsule endoscopy done 4yrs ago, which didn't show signs of bleeding or mass. Follow up h/h seemed not appropriately elevated after 1unit. 05/27, pt had episode of hematochezia, melena, however repeat FOBT returned negative. GI was consulted. 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 -appreciate Dr.Wakelin consult, EGD and colonoscopy unrevealing of source of bleeding., spoke with Oncology ,will restart Plavix and warfarin tonight.watch him overnight. 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
--- NOTE | 2017-05-29 15:36 | PCM.PHAPRO ---
Progress Warfarin Management by Pharmacy: -Indication: afib and hx of PE -Home Dose: warfarin 3mg on MoTh and 2mg all other days -Inr Goal: 2-3 -Drug Interactions: plavix (platelets) to be resumed tomorrow -Disease Interactions: lung cancer -H/H: 10.8/34.9 Platelets: 229 -inr on 05/26: 1.37 -Plan: warfarin is to be resumed today after being held on admission for anemia with a workup by GI (upper endoscopy and colonoscopy) which showed no sign of lower gi bleeding and no bleeding source. will give a one time dose of warfarin 4mg this evening and monitor. serial inr's have been ordered Rachel Carter [facility] May 29, 2017 15:36
--- NOTE | 2017-05-29 17:59 | NUR ---
Colonoscopy: Patient had colonoscopy today. Per MD patient has polyps and no active bleeding. Patient tolerated the procedure without issues. Patient was started on a regular diet and he is tolerating the food without issues. Patients Coumadin dosing was started this evening and pending his blood draw at 0500 patient will possibly be discharged tomorrow AM. (his discharge paperwork has been prepared for him for a possible 0700 discharge so he can make it to his cancer treatment appointment in [place] tomorrow AM.)
[2017-05-29] MEDS: Albuterol 2.5 mg/3 mL Inhalation Solution NEB PRN (23:22)
[2017-05-30 01:38] VITALS: O2SAT 93
[2017-05-30 01:48] VITALS: PULSE 100; RESP 20; O2SAT 98
[2017-05-30] MEDS: Albuterol-Ipratropium 3 mL Inhalation Solution NEB SCH ×2 (01:48→05:17)
--- NOTE | 2017-05-30 04:15 | NUR ---
Oxygen Pt's O2 via NC was increased to 2L due to s/sx of shortness of breath after ambulating from bathroom. Pt did not want to wear O2 while in the bathroom and upon returning had s/sx of shortness of breath with exertion, but denied. "I am not short of breath, I just have phlegm in my throat." Pt appears to be resting comfortably at this time. VSS. Care continues.
[2017-05-30 05:17] VITALS: PULSE 97; RESP 20; O2SAT 96
[2017-05-30 05:23] VITALS: BP 148/66; PULSE 97; RESP 20; O2SAT 96
[2017-05-30 06:29] LABS: BASOPHILS % (AUTO) 0.3 % (0-3); MONOCYTES % (AUTO) 9.4 % (4-12); Mean Corpuscular Volume 75.5 fL (81-100); NEUTROPHILS % (AUTO) 81.6 % (40-74); Platelet Count 196 bil/L (150-400)
[2017-05-30 06:44] LABS: Magnesium 1.7 mg/dL (1.6-2.6)
[2017-05-30 07:06] LABS: INR 1.23 ratio
--- NOTE | 2017-05-30 07:11 | PCM.DIMED ---
Discharge Instructions Date of Service May 30, 2017 Dates of Hospitalization May 26, 2017 at 13:40 Discharge Diagnosis Discharge Diagnosis # Acute on chronic blood loss anemia requiring transfusion, unknown source but likely due to small bowel AVM, present on admission, active. chronic, stable # Stage IV squamous cell carcinoma of the left upper lung with right upper lobe metastatic deposit, #History of PE on Coumadin #Atrial fibrillation, #Peripheral vascular disease, #HTN (hypertension), #Chronic renal insufficiency, Diet Discharge Diet: Low fat, Low Sodium Activity Discharge Activity: Limited until seen by PCP Call your provider Call your provider for: Fever or Chills, Shortness of breath, Bleeding, Chest pain, Vomitting, Excessive diarrhea, Weakness (unilateral) Patient Instructions Patient Instructions You were hospitalized due to anemia requiring transfusion. Source of bleeding most likely small bowel AV malformation. Endoscopy and colonoscopy unrevealing of source of bleeding.Dr Andrea's office will contact you to arrange capsule endoscopy. Please continue warfarin and Plavix. Please follow-up with Dr. Andrea in 1 week. Please follow-up with oncologist in [place] today as scheduled. Follow-up Provider: Sonam Overton PA-C Follow-up with PCP in: 2 weeks Provider: Minh Andrea MD Follow-up in: 1 week Mid-level Provider (F9): Subhash Calderón MD Follow-up with Mid-level in: 1 week Kevon Lainez MD May 30, 2017 07:10
[2017-05-30] MEDS: Pantoprazole 40 mg ER24 Tablet PO SCH (07:37)
[2017-05-30] MEDS: Pentoxifylline 400 mg ER12 Tablet PO SCH (07:37)
[2017-05-30] MEDS: predniSONE 5 mg Tablet PO SCH (07:37)
--- NOTE | 2017-05-30 08:51 | NUR ---
Discharge Nursing Note: Patient was discharged to home at 0755 . His IVs x2 were removed intact. All of patients discharge information was reviewed with him and his questions were answered to his satisfaction. Patient was brought to the hospital lobby by nursing staff member in a wheelchair and he was driven to home by his .
--- NOTE | 2017-05-30 11:27 | NUR ---
Social Work: Discharge Data: EMR reviewed. Patient is on day 4 of hospitalization for anemia & upper GI bleed per H&P. Patient has been deemed medically ready for discharge today. No needs are anticipated at this time. Transportation will be provided by via POV. Assessment: Patient will discharge home Plan: Patient will discharge home today. Transportation will be provided by via POV. Patient has no additional needs at this time. NATALIIA Bucio
--- NOTE | 2017-05-30 12:53 | PATH ---
SURGICAL PATHOLOGY Attending Physician:Kurt Caal MD CASE STATUS: Signed Out PATIENT NAME: MONTSE MARIN PID: [id number] : 1935 DATE COLLECTED:05/27/2017 00:00 SPECIMEN: Esophagus, Biopsy CLINICAL HISTORY: 1). 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 Negative for dysplasia and malignancy. ICD10: K22.7 GROSS DESCRIPTION: The specimen is received in one formalin filled container labeled with the patient's name, sublabeled "distal esophagus" and consists of 3 portions of tissue which aggregate to 0.2 x 0.2 x 0.2 CM. The specimen is entirely submitted in one cassette. 05/28/2017VT ICD-9 CODES: CPT CODES: 1: 42166 Electronically Signed Out Jese Dietz MD, PhD [facility], [place] [address] Technical component performed at [facility], [address] [place] [address] Ave[address], [place], [address]
--- NOTE | 2017-05-30 15:43 | PCM.DC.MED ---
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 2. Small hiatal hernia. RECOMMENDATIONS: 1. Await pathology results. 2. Protonix 40 mg by mouth once a day. 3. Given the fact that the patient was guaiac-negative in-house and hemoglobin is stable at this point in time, would do serial hemoglobins at this point in time and hold off on colonoscopy at this time. If pt has overt signs bleeding, then consider colonoscopy 4. Recommendations per GI consultation team. Kurt Caal MD 05/27/17 1316 . Colonoscopy DATE OF SERVICE: 05/29/2017 PRIMARY PROVIDER: Sonam Overton PA-C PROCEDURE: Colonoscopy. INDICATIONS: A 81-year-old male on Coumadin and Plavix, who presented with severe anemia once again. Upper endoscopy did not really explain his symptoms. Repeat colonoscopy is therefore pursued. FINDINGS: No sign of new or old blood anywhere throughout the colon. No bleeding focus appreciated. No inflammatory features. The tattoo at around 18 cm from the anal verge was identified. There was a small residual of polyp focus close to where the tattoo was. No mass lesions throughout. No significant vascular pathology. There were a couple of other scattered diminutive polyps throughout the colon. The terminal ileum appeared visually normal. No signs of inflammation, new or old blood. No vascular malformations. ENDOSCOPIC DIAGNOSES: 1. No sign of recent lower gastrointestinal bleeding. 2. No obvious bleeding source identified. 3. Diminutive colon polyps. 4. Hemorrhoids. RECOMMENDATIONS: 1. The patient can have his diet advanced, to be discharged at the discretion of the hospitalist service. 2. Repeat outpatient capsule endoscopy would certainly be reasonable considering how he presented today. 3. I would repeat a colonoscopy with anesthesia in the next year considering the small polyps seen at today's examination. At that time it would be ideal to have the patient off his Plavix for a full week. 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 Patient states that he chronically has black tarry stool intermittently but has never had bright red blood in his stool. Although he denies constipation he reports bowel movements every four days and describes episodes of liquid stool followed by hard stool 1- 2 days later. He denies abdominal pain or cramping, nausea and vomiting. Associated symptoms include fatigue, generalized weakness and dark black stools with bright red blood for the past few days. Of note, he reports a recent diagnosis of pneumonia for which he completed a course of azithromycin a few days ago. Although he continues to report a productive dough, shortness of breath he feels this is resolving. He denies fever, chills, abdominal pain, nausea, vomiting, diarrhea and constipation. He was admitted in March with similar symptoms and anemia attributed to gastric AVM at that time. He was transfused 3 units of pRBCs and discharged in stable condition with plan to followup as an outpatient for possible repeat EGD. Of note, patient' s last endoscopy in February of 2016 showed Gastric AVM, mild gastritis and mild distal esophagitis. He is currently taking pantoprazole daily and states that he occasionally takes ranitidine as well. He reportedly underwent capsule endoscopy after recent hospital stay but he does not remember the findings and results are not available within our system. However, it was noted to be subacute on chronic bleeding from the AVM and anticoagulation was continued at discharge. He is following up Dr. Calderón for lung cancer and reportedly finished immunotherapy treatment recently with plan to participate in clinical trial at [place] [facility], next Friday. In the ED, he was afebrile and hypertensive with a BP of 166/77 and heart rate 87. Maintaining oxygen sats of 98% on room air. Labs significant for a Hb of 6.7 , Hct 24.2, plts 255 and +FOBT. Metabolic panel largely unremarkable. 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 - FOBT+ on admission per ED. h/h dropped 1 from baseline. Initialy it was suspected that pt has very mild degree chronic bleeding from previously found AVM. No s/s of active GIB, symptom are unremarkable.pt received PPI 80mg iv in ED. reportedly had colonscopy/capsule endoscopy done 4yrs ago, which didn't show signs of bleeding or mass. Follow up h/h seemed not appropriately elevated after 1unit. 05/27, pt had episode of hematochezia, melena, however repeat FOBT returned negative. -GI was consulted. 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 Colonoscopy 05/29 unrevealing of source of bleeding., Dr Andrea's office will arrange for capsule endoscopy in 1 week outpatient. -Warfarin restarted on 05/29 night ,will restart Plavix 05/30 given biopsy on EGD.. 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 Subhash Calderón, recently finishsed, FU with [facility] on day of discharge #PE on Coumadin, resume Coumadin #Atrial fibrillation, resume Coumadin #Peripheral vascular disease, resume Plavix, warfarin, continue pentoxifylline, #HTN (hypertension), Continue lisinopril #Chronic renal insufficiency, stage III (moderate), Dispo: Discharge home,he has appt with [facility] at 10:30 am Condition on discharge stable Exam Vital Signs (Last) Date Time Temp Pulse Resp B/P Pulse Ox O2 Delivery O2 Flow Rate FiO2 05/30/17 05:23 37.0 97 20 148/66 96 Nasal Cannula 2.00 Exam NAD, comfortably laying down on the bed no JVD, MMM, no LAD RRR, nl s1, s2 no mrg diffuse exp wheezing, polyphasic, no crackles S,ND,NT,normoactive BS+ warm, no edema, pulses 2/2 Test 05/26/17 11:20 05/26/17 13:15 05/30/17 05:58 Hold Mckeon Top Tube Received (Received) Urine Color Straw (YELLOW) Urine Appearance Hazy (CLEAR,HAZY) Urine pH 6.5 (5.0-8.0) Urine Specific Mineral 1.005 (1.003-1.035) Urine Protein Negativemg/dL (NEG,TRACE) Urine Glucose (UA) Negativemg/dL (NEGATIVE) Urine Ketones Negativemg/dL (NEGATIVE) Urine Occult Blood Negative (NEGATIVE) Urine Nitrite Negative (NEGATIVE) Urine Bilirubin Negative (NEGATIVE) Urine Urobilinogen Normalmg/dL (NORMAL) Urine Leukocyte Esterase Negative (NEGATIVE) Urine RBC 0-2/hpf (0-2) Urine WBC 0-5/hpf (0-5) Urine Epithelial Cells Occasional/hpf (NONE-MOD) Urine Crystals None seen (NONE SEEN) Urine Bacteria None/hpf (NONE-FEW) Urine Hyaline Casts None/lpf (NONE) Urine Granular Casts None seen (NONE SEEN) Urine Waxy Casts None seen (NONE SEEN) Urine Red Blood Cell Casts None seen (NONE SEEN) Urine White Blood Cell Casts None seen (NONE SEEN) Urine Mucus None seen (None Seen) Urine Trichomonas None seen (NONE SEEN) Urine Yeast None (NONE SEEN) Urinalysis Comment None Urine Culture Reflexed Not indicated Hold Urine Received (Received) White Blood Count 11.1th/mm3 (3.8-10.1) Red Blood Count 4.17mil/mm3 (4.40-5.80) Hemoglobin 9.6g/dL (13.8-17.2) Hematocrit 31.5% (41.0-50.0) Mean Corpuscular Volume 75.5fL (81-100) Mean Corpuscular Hemoglobin 23.0pg (27.0-35.0) Mean Corpuscular Hemoglobin Concent 30.5% (32.0-37.0) Red Cell Distribution Width 21.0% (12.3-15.4) Platelet Count 196bil/L (150-400) Neutrophils (%) (Auto) 81.6% (40-74) Lymphocytes (%) (Auto) 5.5% (14-46) Monocytes (%) (Auto) 9.4% (4-12) Eosinophils (%) (Auto) 3.0% (0-5) Basophils (%) (Auto) 0.3% (0-3) Prothrombin Time 13.2sec (8.1-12.5) Prothromb Time International Ratio 1.23ratio Sodium Level 138mEq/L (134-144) Potassium Level 3.4mEq/L (3.5-5.2) Chloride Level 99mEq/L (97-108) Carbon Dioxide Level 24mmol/L (18-29) Blood Urea Nitrogen 22mg/dL (8-27) Creatinine 1.47mg/dL (0.76-1.27) Estimat Glomerular Filtration Rate 49mL/min (>59) Glucose Level 110mg/dL (60-99) Calcium Level 8.6mg/dL (8.5-10.1) Magnesium Level 1.7mg/dL (1.6-2.6) Total Bilirubin 0.4mg/dL (0.0-1.2) Aspartate Amino Transf (AST/SGOT) 11U/L (0-50) Alanine Aminotransferase (ALT/SGPT) 7U/L (0-44) Alkaline Phosphatase 108U/L (25-160) Total Protein 5.9g/dL (6.4-8.4) Albumin 3.5g/dL (3.4-5.0) Procalcitonin 0.35ng/mL (0.00-0.08) Discharge Medications Discharge Medications Clopidogrel Bisulfate (Plavix) 75 Mg Tablet 75 MG PO DAILY (Reported) Pantoprazole DR (Pantoprazole DR) 40 Mg Tablet.dr 40 MG PO DAILY (Reported) Pentoxifylline (Pentoxifylline) 400 Mg Tablet.er 400 MG PO TID Prescribed by: SKYLER AVILEZ DO Prednisone (PredniSONE) 5 Mg Tab 5 MG PO DAILY (Reported) Warfarin Sodium (Warfarin Sodium) 2 Mg Tablet 2 MG PO S[place]y,Tu,We,Fr,Sa (Reported) Warfarin Sodium (Warfarin Sodium) 2 Mg Tablet 3 MG PO mon,thur (Reported) As needed ([sudafed]) 30 MG PO q6 hours PRN PRN For Congestion (Reported) Albuterol HFA (Proair HFA) 8.5 Gm Hfa.aer.ad 2 PUFFS INHALATION Q4H PRN PRN For Shortness of Breath (Reported) Ipratropium/Albuterol Sulfate (Iprat-Albut 0.5-3(2.5) mg/3 mL Inhalant Soln) 3 Ml Ampul.neb 3 ML IH Q6 PRN PRN For Wheezing (Reported) Followup Plan Disposition: Home Discharge Diet: Low fat, Low Sodium Discharge Activity: Limited until seen by PCP Patient Instructions You were hospitalized due to anemia requiring transfusion. Source of bleeding most likely small bowel AV malformation. Endoscopy and colonoscopy unrevealing of source of bleeding.Dr Andrea's office will contact you to arrange capsule endoscopy. Please continue warfarin and Plavix. Please follow-up with Dr. Andrea in 1 week. Please follow-up with oncologist in [place] today as scheduled. Follow-up Provider: Sonam Overton PA-C Follow-up with PCP in: 2 weeks Provider: Minh Andrea MD Follow-up in: 1 week Mid-level Provider: Subhash Calderón MD Follow-up with Mid-level in: 1 week Time spent 35 minutes coordinating discharge copies to: Sonam Overton PA-C; Subhash Calderón MD; Minh Andrea MD, Melaku MD May 30, 2017 15:43
== END 2017-05-30 07:53 | disposition home or self-care (01) | DRG 300 ==
LOC: SED 10:37 → OBSVTOIN 13:40 → MPC 13:40 → INTOOBSV 13:40
PROVIDERS: ADMIT Internal Medicine; ATTEND Internal Medicine
PROC: 0DB58ZX Excision of Esophagus, Via Natural or Artificial Opening Endoscopic, Diagnostic (ICD-10-PCS; principal; 2017-05-26)
PROC: 30233N1 Transfusion of Nonautologous Red Blood Cells into Peripheral Vein, Percutaneous Approach (ICD-10-PCS; 2017-05-26)
PROC: 30233N1 Transfusion of Nonautologous Red Blood Cells into Peripheral Vein, Percutaneous Approach (ICD-10-PCS; 2017-05-27)
DX: Q27.33 Arteriovenous malformation of digestive system vessel (principal); K92.2 Gastrointestinal hemorrhage, unspecified; D62 Acute posthemorrhagic anemia; C34.90 Malignant neoplasm of unspecified part of unspecified bronchus or lung; I27.82 Chronic pulmonary embolism; Z79.01 Long term (current) use of anticoagulants; Z85.46 Personal history of malignant neoplasm of prostate; Z87.891 Personal history of nicotine dependence; Z79.02 Long term (current) use of antithrombotics/antiplatelets; N18.3 Chronic kidney disease, stage 3 (moderate); I12.9 Hypertensive chronic kidney disease with stage 1 through stage 4 chronic kidney disease, or unspecified chronic kidney disease